=== PATIENT | female | born 1985 | race Caucasian/White ===

== ENCOUNTER → 2020-08-30 11:22 | Outpatient (BNVA) | payer MEDICAID, SELFPAY | PROVIDERS: PCP Family Medicine; Visit Provider Advanced Practice Midwife ==

== ENCOUNTER 2020-10-18 16:17 | Outpatient (REF) | payer MEDICAID, SELFPAY ==
[2020-10-18 17:01] LABS: MANUAL DIFF FLAG NO
[2020-10-18 17:12] LABS: Basophils Percent Auto 0.2 % (0-2); Eosinophils Percent Auto 0.6 % (0-4); Hematocrit 37.8 % (37-47); Hemoglobin 12.4 g/dl (12.0-16.0); Imm Gran Abs Auto 0.01 X10*3/uL (0.00-0.03); Imm Gran Pct Auto 0.2 % (0.0-0.4); Lymphocytes Absolute Auto 1.1 X10*3/uL (1.2-4.9); Lymphocytes Percent Auto 20.6 % (20-40); Mean Corpuscular HGB Conc 32.8 g/dl (31.0-35.0); Mean Corpuscular Hemoglobin 28.3 pg (27.0-33.0); Mean Corpuscular Volume 86.3 fL (80-98); Mean Platelet Volume 9.8 fL (9.4-12.3); Monocytes Absolute Auto 0.4 X10*3/uL (0.1-1.2); Monocytes Percent Auto 7.6 % (2-11); Neutrophils Absolute Auto 3.7 X10*3/uL (2.0-8.3); Neutrophils Percent Auto 70.8 % (45-73); Platelet Count 299 X10*3/uL (160-400); Red Blood Count 4.38 X10*6/uL (4.20-5.50); Red Cell Distribution Width 12.9 % (11.0-16.0); White Blood Count 5.2 X10*3/uL (4.8-10.8)
[2020-10-18 17:48] LABS: Alanine Aminotransferase 11 U/L (0-31); Albumin Level 4.6 g/dL (3.5-5.0); Alkaline Phosphatase 56 U/L (39-117); Anion Gap 11 (12-20); Aspartate Amino Transferase 16 U/L (5-31); Bilirubin Total 0.7 mg/dL (0.0-1.0); Blood Urea Nitrogen 11 mg/dL (9-16); C Reactive Protein 0.44 mg/dL (< or = 0.50); Calcium 9.3 mg/dL (8.4-10.2); Carbon Dioxide 27 mmol/L (22-29); Chloride 102 mmol/L (96-108); Estimated Glomerular Filt Rate > 60; Glucose Random 87 mg/dL (60-115); Potassium 3.8 mmol/L (3.3-5.1); Sodium 136 mmol/L (135-145); Total Protein 8.2 g/dL (6.5-8.0)
[2020-10-18 18:09] LABS: Glucose Urine UA NEG (NEG); Leukocyte Esterase Urine NEG (NEG); Nitrite Urine NEG (NEG); Specific Gravity - Urine >= 1.030 (1.005-1.025); Urine Blood 1+ (NEG); Urine Ketones NEG (NEG); Urine Protein NEG (NEG-TRACE)
[2020-10-18 18:13] LABS: Appearance Urine CLEAR; Color Urine YELLOW
[2020-10-18 18:18] LABS: RBC Urine 0-2 /HPF (0); Squamous Epithelial Cell Urine 1+ /LPF; WBC Urine 0-2 /HPF (0-4)
[2020-10-18 18:18] LABS: Erythrocyte Sedimentation Rate 22 MM/HR (0-20)
[2020-10-18 18:19] LABS: Mucus Urine 2+ /LPF
[2020-10-19 13:12] LABS: Anti DNA DS Antibody 7 IU/mL; Antibody to SS-A Antigen <1.0 NEG AI (<1.0 NEG); Antibody to SS-B Antigen <1.0 NEG AI (<1.0 NEG); SM/Ribonucleoprotein Ab <1.0 NEG AI (<1.0 NEG); Smith Protein <1.0 NEG AI (<1.0 NEG)
[2020-10-22 17:47] LABS: Complement C3 163 mg/dL (83-193)
[2020-10-23 13:56] LABS: ANA Pattern 2 Nuclear, Homogeneous; ANA Titer 2 1:40 titer; Anti Nuclear Antibody Screen POSITIVE (NEGATIVE); Anti Nuclear Antibody Titer 1:40 titer
== END 2020-10-18 16:18 | disposition home or self-care (01) ==
LOC: HO.LAB 16:17
PROVIDERS: PCP General Practice; Visit Provider Student in an Organized Health Care Education/Training Program
DX: R76.8 Other specified abnormal immunological findings in serum (principal); I82.3 Embolism and thrombosis of renal vein; Q26.8 Other congenital malformations of great veins; Z79.01 Long term (current) use of anticoagulants; Z79.1 Long term (current) use of non-steroidal anti-inflammatories (NSAID)
CPT/HCPCS: 36415; 80053; 81001; 85025; 85652; 86038; 86039; 86140; 86160; 86225; 86235; 99212

== ENCOUNTER 2020-10-22 13:19 | Outpatient (REF) | payer MEDICAID, SELFPAY ==
[2020-10-23 00:20] LABS: CT PCR NOT DETECTED (Not Detect.); NG PCR NOT DETECTED (Not Detect.)
[2020-10-23 09:08] LABS: BV Int Neg Control Negative (Negative); BV Int Pos Control Positive (Positive)
== END 2020-10-22 13:20 | disposition home or self-care (01) ==
LOC: HO.LAB 13:19
PROVIDERS: PCP General Practice; Visit Provider Advanced Practice Midwife
DX: Z01.419 Encounter for gynecological examination (general) (routine) without abnormal findings (principal); N89.8 Other specified noninflammatory disorders of vagina; Z20.2 Contact with and (suspected) exposure to infections with a predominantly sexual mode of transmission
CPT/HCPCS: 87480; 87491; 87510; 87591; 87660

== ENCOUNTER 2021-03-05 14:57 | Outpatient (REF) | payer MEDICAID, SELFPAY ==
[2021-03-05 15:47] LABS: MANUAL DIFF FLAG NO
[2021-03-05 15:50] LABS: Basophils Percent Auto 0.2 % (0-2); Eosinophils Percent Auto 0.9 % (0-4); Hemoglobin 12.9 g/dl (12.0-16.0); Imm Gran Abs Auto 0.02 X10*3/uL (0.00-0.03); Imm Gran Pct Auto 0.4 % (0.0-0.4); Lymphocytes Absolute Auto 1.2 X10*3/uL (1.2-4.9); Lymphocytes Percent Auto 26.4 % (20-40); Mean Corpuscular HGB Conc 33.1 g/dl (31.0-35.0); Mean Corpuscular Volume 84.8 fL (80-98); Mean Platelet Volume 10.3 fL (9.4-12.3); Monocytes Absolute Auto 0.3 X10*3/uL (0.1-1.2); Monocytes Percent Auto 6.2 % (2-11); Neutrophils Percent Auto 65.9 % (45-73); Platelet Count 320 X10*3/uL (160-400); Red Cell Distribution Width 12.6 % (11.0-16.0); White Blood Count 4.5 X10*3/uL (4.8-10.8)
[2021-03-05 16:25] LABS: Alanine Aminotransferase 9 U/L (0-31); Albumin Level 4.5 g/dL (3.5-5.0); Alkaline Phosphatase 60 U/L (39-117); Anion Gap 13 (12-20); Aspartate Amino Transferase 15 U/L (5-31); Bilirubin Total 0.6 mg/dL (0.0-1.0); Blood Urea Nitrogen 8 mg/dL (9-16); C Reactive Protein 0.25 mg/dL (< or = 0.50); Calcium 9.9 mg/dL (8.4-10.2); Carbon Dioxide 24 mmol/L (22-29); Chloride 105 mmol/L (96-108); Estimated Glomerular Filt Rate > 60; Glucose Random 102 mg/dL (60-115); Potassium 4.4 mmol/L (3.3-5.1); Sodium 138 mmol/L (135-145); Total Protein 8.1 g/dL (6.5-8.0)
[2021-03-05 16:33] LABS: Erythrocyte Sedimentation Rate 20 MM/HR (0-20)
[2021-03-05 17:02] LABS: Glucose Urine UA NEG (NEG); Leukocyte Esterase Urine NEG (NEG); Nitrite Urine NEG (NEG); Specific Gravity - Urine 1.025 (1.005-1.025); Urine Blood 1+ (NEG); Urine Ketones NEG (NEG); Urine Protein NEG (NEG-TRACE)
[2021-03-05 17:06] LABS: Appearance Urine CLEAR; Color Urine YELLOW
[2021-03-05 17:15] LABS: Bacteria Urine TRACE /LPF; RBC Urine 0-2 /HPF (0); WBC Urine 0 /HPF (0-4)
[2021-03-07 11:07] LABS: Anti DNA DS Antibody 6 IU/mL
[2021-03-07 11:37] LABS: Complement C3 136 mg/dL (83-193)
== END 2021-03-05 14:58 | disposition home or self-care (01) ==
LOC: HO.LAB 14:57
PROVIDERS: PCP General Practice; Visit Provider Student in an Organized Health Care Education/Training Program
DX: R76.8 Other specified abnormal immunological findings in serum (principal); I82.3 Embolism and thrombosis of renal vein
CPT/HCPCS: 36415; 80053; 81001; 85025; 85652; 86140; 86160; 86225; 99212

== ENCOUNTER 2021-10-28 13:04 | Outpatient (REF) | payer MEDICAID, SELFPAY ==
[2021-10-29 08:15] LABS: CT PCR NOT DETECTED (Not Detect.); NG PCR NOT DETECTED (Not Detect.)
[2021-10-29 08:43] LABS: BV Int Neg Control Negative (Negative); BV Int Pos Control Positive (Positive)
== END 2021-10-28 13:05 | disposition home or self-care (01) ==
LOC: HO.LAB 13:04
PROVIDERS: PCP General Practice; Visit Provider Advanced Practice Midwife
DX: Z01.411 Encounter for gynecological examination (general) (routine) with abnormal findings (principal); N89.8 Other specified noninflammatory disorders of vagina; Z20.2 Contact with and (suspected) exposure to infections with a predominantly sexual mode of transmission
CPT/HCPCS: 87480; 87491; 87510; 87591; 87660

== ENCOUNTER 2023-03-04 14:49 | Outpatient (AMB) | payer MEDICAID, SELFPAY ==
--- OUTSIDE RECORDS SUMMARY | 2023-03-04 14:50 | XMS_ITS | Continuity of Care Document ---
Author Name Unknown Organization [facility] Address [address] [place] [address]- Care Team Providers Care Credit Representative Name Role Phone Bridgette Grajeda MD Primary Care Physician Encounter [facility] Date(s): 09/28/19 - 10/08/19 [facility] [address] [place] [address]- [facility] Attending Physician: Delfin Watts Admitting Physician: Admtr, Delfin Referring Physician: Admtr, ArJose Allergies, Adverse Reactions, Alerts Substance Reaction Severity Status NKA Active Immunizations Given and Recorded Vaccine Date Status Refusal Reason influenza virus vaccine, inactivated 05/22/16 Give n tetanus/diphtheria/pertussis, acel(Tdap) 03/20/16 Given tetanus/diphtheria/pertussis, acel(Tdap) 03/06/16 Given Not Given Vaccine Date Status Refusal Reason influenza virus vaccine, inactivated 06/09/19 Not Given Patient Refuses influenza virus vaccine, inactivated 06/08/19 Not Given Patient Refuses pneumococcal 23-valent vaccine 06/09/19 Not Given Patient Refuses pneumococcal 23-valent vaccine 06/06/19 Not Given Patient Refuses Medications Plaquenil 200 mg oral tablet 200 mg, 1, tablet, By Mouth, Daily, Refills 0, Maintenance, 09/28/19 9:08:00 EST Start Date: 09/28/19 Status: Ordered Xarelto 20 mg oral tablet 1 tablet = 20 mg, By Mouth, Daily at supper, To begin taking after finishing the starter pack with evening meal, # 30 tablet, 3 Refills, Maintenance, 09/15/19 8:55:00 EST, Tablet, [facility] - , 162.8, cm, 07/25/19 15:04:00 EST,... 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
--- OUTSIDE RECORDS SUMMARY | 2023-03-04 14:50 | XMS_ITS | Continuity of Care Document ---
Author Name Unknown Organization [facility] Address [address] [facility] [place] [address]- Care Team Providers Care State'S Attorney Name Role Phone Nicci LEBRON, Bridgette Primary Care Physician [phone] Encounter 02/09/20 - 03/10/20 [facility] [address] [facility], [facility] [address] [place] [address]- [phone] Attending Physician: Charlotte LEBRON(Hem/Onc), Fred Laguerre Admitting Physician: Charlotte LEBRON(Hem/Onc), Fred Laguerre Referring Physician: Charlotte LEBRON(Hem/Onc), Fred Laguerre Allergies, Adverse Reactions, Alerts Substance Reaction Severity [...] vaccine 06/06/19 Not Given Patient Refuses Medications aspirin 325 mg oral tablet 325 mg, 1, tablet, By Mouth, Every 4 hours, Refills 0, Maintenance, 02/07/20 12:02:00 EDT Start Date: 02/07/20 Status: Ordered Biotin By Mouth, Daily, 0 Refills, Maintenance, 02/07/20 12:01:00 EDT Start Date: 02/07/20 Status: Ordered Problem List Condition Effective Dates Status Health Status 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
--- OUTSIDE RECORDS SUMMARY | 2023-03-04 14:50 | XMS_ITS | Continuity of Care Document ---
Author Name Unknown Organization [facility] Address [address] [place] [address]- Care Team Providers Care Vocational Training Instructor Name Role Phone Bridgette Grajeda MD Primary Care Physician [phone] Encounter [facility] Date(s): 02/15/20 - 02/15/[address] [address]- [facility] Discharge Disposition: A-D/C Home Attending Physician: Thiago Jiang MD Admitting Physician: Thiago Jiang MD Referring Physician: Thiago Jiang MD Allergies, Adverse Reactions, Alerts Substance Reaction Severity [...] with history of mu ltiple loss(Confirmed) Active Vital Signs Most recent to oldest [Reference Range]: 1 2 3 Height 160 cm (02/15/20 7:00 AM) 160 cm (02/15/20 7:00 AM) Weight 70.4 kg (02/15/20 7:00 AM) 70.4 kg (02/15/20 7:00 AM) Oxygen Saturation [94-100 %] 100 % (02/15/20 11:30 AM) 100 % (02/15/20 11:15 AM) 100 % (02/15/20 11:00 AM) Pulse Rate [55-90 bpm] 74 bpm (02/15/20 7:00 AM) Body Mass Index [18.5-24.99] 27.5 *H* (02/15/20 7:00 AM) Blood Pressure [90-138/55-84 mm Hg] 108/67mm Hg (02/15/20 11:30 AM) 105/62mm Hg (02/15/20 11:15 AM) 104/65mm Hg (02/15/20 11:00 AM) Respiratory Rate [16-30 br/min] 19 br/min (02/15/20 12:07 PM) 19 br/min (02/15/20 11:30 AM) 19 br/min (02/15/20 11:15 AM) Temperature [96.8-100.4 DegF] 98.2 DegF (02/15/20 9:50 AM) 97.1 DegF (02/15/20 7:00 AM) Mode of Delivery (Oxygen) Room air (02/15/20 11:30 AM) Room air (02/15/20 11:15 AM) Room air (02/15/20 11:00 AM) Blood pressure sites Arm, right (02/15/20 10:00 AM) Arm, right (02/15/20 7:00 AM) Temperature Route Temporal (02/15/20 9:50 AM) Temporal (02/15/20 7:00 AM) Dry Weight 70.4 kg (02/15/20 7:00 AM) 70.4 kg (02/15/20 7:00 AM) Weight Obtained Via Standing scale (02/15/20 7:00 AM) Standing scale (02/15/20 7:00 AM) Dry Weight Obtained Via Standing scale (02/15/20 7:00 AM) Standing scale (02/15/20 7:00 AM) Social History Social History Type Response Smoking Status Former smoker, quit more than 30 days ago entered on: 09/28/19 Sex
--- OUTSIDE RECORDS SUMMARY | 2023-03-04 14:50 | XMS_ITS | Continuity of Care Document ---
Author Name Unknown Organization [facility] Address [address] [place] [address]- Care Team Providers Care Substation Operator Apprentice Name Role Phone Bridgette Grajeda MD Primary Care Physician Encounter [facility] Date(s): 03/15/20 - 04/14/20 [facility] [address] [place] [address]- [facility] Allergies, Adverse Reactions, Alerts Substance Reaction Severity [...] 12:01:00 EDT Start Date: 02/07/20 Status: Ordered Eliquis 5 mg oral tablet 1 tablet = 5 mg, By Mouth, 2 times a day, # 60 tablet, 5 Refills, Maintenance, 03/15/20 13:57:00 EDT, Tablet, [facility], 160, cm, 02/15/20 7:29:00 EDT, Height, 70.4, kg, :29:00 EDT, Dry Weight Start Date: 03/15/20 Status: Ordered hydroxychloroquine 200 mg oral tablet 200 mg, 1, tablet, By Mouth, Daily, Refills 0, Maintenance, 03/29/20 13:22:00 EDT Start Date: 03/29/20 Status: Ordered traMADol 50 mg oral tablet 1 tablet = 50 mg, By Mouth, Every 4 hours, PRN as needed for pain, 0 Refills, Maintenance, 03/15/2014:00:00 EDT, Tablet Start Date: 03/15/20 Status: Ordered Problem List Condition Effective Dates Status Health Status Inform ant Positive CARLITO (antinuclear antibody)(Confirmed) Active Warfarin anticoagulation(Confirmed) Active 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
--- OUTSIDE RECORDS SUMMARY | 2023-03-04 14:51 | XMS_ITS | Continuity of Care Document ---
Author Name Unknown Organization [facility] Address [address] [place] [address]- Care Team Providers Care Mortgage Processing Manager Name Role Phone Bridgette Grajeda MD Primary Care Physician Encounter [facility] Date(s): 01/30/20 - 02/29/20 [facility] [address] [place] [address]- [facility] Allergies, Adverse Reactions, Alerts Substance Reaction Severity [...]
--- OUTSIDE RECORDS SUMMARY | 2023-03-04 14:51 | XMS_ITS | Continuity of Care Document ---
Author Name Unknown Organization [facility] Address [address] [place] [address]- Care Team Providers Care Consumer Insights Specialist Name Role Phone Bridgette Grajeda MD Primary Care Physician [phone] Encounter [facility] Date(s): 03/15/20 - 03/22/20 [facility] [address] [place] [address]- [facility] Attending Physician: Deidre LEBRON, Thiago Admitting Physician: Deidre LEBRON, Thiago Allergies, Adverse Reactions, Alerts Substance Reaction Severity [...] 5 Refills, Maintenance, 03/15/20 13:57:00 EDT, Tablet, [facility], 160, cm, 02/15/20 7:29:00 EDT, Height, 70.4, kg, :29:00 EDT, Dry Weight Start Date: 03/15/20 Status: Ordered traMADol 50 mg oral tablet 1 tablet = 50 mg, By Mouth, Every 4 hours, PRN as needed for pain, 0 Refills, Maintenance, 03/15/2014:00:00 EDT, Tablet Start Date: 03/15/20 Status: Ordered Problem List Condition Effective Dates Status Health Status 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
--- OUTSIDE RECORDS SUMMARY | 2023-03-04 14:51 | XMS_ITS | Continuity of Care Document ---
Author Name Unknown Organization [facility] Address [address] [place] [address]- Care Team Providers Care Chassis Driver Name Role Phone Bridgette Grajeda MD Primary Care Physician Encounter [facility] Date(s): 10/31/19 - 12/07/[address] [address]- [facility] Attending Physician: Not on Staff, Attending MD Referring Physician: Bridgette Grajeda MD Allergies, Adverse Reactions, Alerts Substance Reaction [...] 3 Refills, Maintenance, 09/15/19 8:55:00 EST, Tablet, [facility] - , 162.8, cm, 07/25/19 15:04:00 EST,... 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
--- OUTSIDE RECORDS SUMMARY | 2023-03-04 14:51 | XMS_ITS | Continuity of Care Document ---
Author Name Unknown Organization [facility] Address [address] [place] [address]- Care Team Providers Care Putty Worker Name Role Phone Bridgette Grajeda MD Primary Care Physician Encounter [facility] Date(s): 05/07/20 - 06/06/20 [facility] [address] [place] [address]- [facility] Attending Physician: Delfin Watts Admitting Physician: AdmtrDelfin Referring Physician: Admtr, Ar8 Allergies, Adverse Reactions, Alerts Substance Reaction Severity [...] 5 Refills, Maintenance, 03/15/20 13:57:00 EDT, Tablet, [facility], 160, cm, 02/15/20 7:29:00 EDT, Height, 70.4, kg, 207:29:00 EDT, Dry Weight Start Date: 03/15/20 Status: Ordered HYDROcodone 10 mg oral capsule, extended release 1 capsule = 10 mg, By Mouth, Every 12 hours, 0 Refills, Maintenance, 05/09/20 15:23:00 EDT, Partialfill upon patient request Start Date: 05/09/20 Status: Ordered hydroxychloroquine 200 mg oral tablet 200 mg, 1, tablet, By Mouth, Daily, Refills 0, Maintenance, 03/29/20 13:22:00 EDT Start Date: 03/29/20 Status: Ordered Problem List Condition Effective Dates [...]
--- OUTSIDE RECORDS SUMMARY | 2023-03-04 14:51 | XMS_ITS | Continuity of Care Document ---
Author Name Unknown Organization [facility] Address [address] [place] [address]- Care Team Providers Care Magneto Repairer Name Role Phone Bridgette Grajeda MD Primary Care Physician Encounter [facility] Date(s): 06/24/22 - 07/24/22 [facility] [address] [place], [place] [address] Attending Physician: Delfin Watts Admitting Physician: AdmDelfin felix Referring Physician: AdmtrDelfin Allergies, Adverse Reactions, Alerts No Known Allergies Immunizations Given and Recorded Vaccine Date Status [...] vaccine 06/06/19 Not Given Patient Refuses Medications Biotin By Mouth, Daily, 0 Refills, Maintenance, 02/07/20 12:01:00 EDT Start Date: 02/07/20 Status: Ordered Eliquis 5 mg oral tablet 1 tablet = 5 mg, By Mouth, 2 times a day, # 60 tablet, 5 Refills, Maintenance, 06/13/21 14:47:00 EST, Tablet, [id number], 160, cm, 06/13/21 10:35:00 EST, Height, 69.5, kg, 05/09/20 15:18:00 EDT, Dry Weight Start Date: 06/13/21 Status: Ordered HYDROcodone 10 mg oral capsule, extended release 1 capsule = 10 mg, By Mouth, Every 12 hours, 0 Refills, Maintenance, 05/09/20 15:23:00 EDT, Partialfill upon patient request Start Date: 05/09/20 Status: Ordered hydroxychloroquine 200 mg oral tablet 200 mg, 1, tablet, By Mouth, Daily, Refills 0, Maintenance, 03/29/20 13:22:00 EDT Start Date: 03/29/20 Status: Ordered Problem List Condition Confirmation Course Effective Dates Status H ealth Status Informant Positive CARLITO (antinuclear antibody) Confirmed Active Warfarin anticoagulation Confirmed Active 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 Lupus Confirmed Active Thrombosis of ovarian vein, chronic Confirmed Active Renal vein thrombosis Confirmed Active Tobacco abuse Confirmed Active Social History Social History Type Response Smoking Status Former smoker, quit more than 30 days ago entered on: 09/28/19 Sex Patient Care team information Care Team Personnel Name: Adelaida Miles Position: [facility] Onco RN Member Role: Primary Care Nurse Name: Bridgette Grajeda MD Position: [facility] Outreach Member Role: PCP Address: Address: [address] [place] [address]- Name: Danay Lerner RN Position: [facility] RN Member Role: Primary Care Nurse Name: Delbert Mccarthy DO Position: [facility] Renal MD Member Role: Lifetime Consulting Physician Address: Address: [address] [place], [place] [address] [place] [address]- Name: Matt Lynch DO Position: [facility] JEWELRY DIPPER MD Member Role: Lifetime JEWELRY DIPPER Physician Address: Address: [address] [facility] [place] [address]- Name: Matty Hardin RN Position: [facility] RN Member Role: Primary Care Nurse Name: Meche Hollins RN Position: [facility] RN Member Role: Primary Care Nurse Name: Radha Mcdaniels RN Position: [facility] RN Member Role: Primary Care Nurse Name: Yissel Mullins RN Position: [facility] SN RN Member Role: Primary Care Nurse Name: Freddie Posey RN Position: [facility] SN RN Member Role: Primary Care Nurse Care Team Related Persons Name: DIAZ PATINO Address: [place] [address] Name: ERIKA YUAN Address: home [address] [place] [address]
--- OUTSIDE RECORDS SUMMARY | 2023-03-04 14:51 | XMS_ITS | Continuity of Care Document ---
Author Name Unknown Organization [facility] Address [address] [place] [address]- Care Team Providers Care Plant Protection Supervisor Name Role Phone Bridgette Grajeda MD Primary Care Physician [phone] Encounter [facility] Date(s): 05/10/20 - 06/09/20 [facility] [address] [place], [place] [address] Attending Physician: AdmDelfin felix Admitting Physician: Admtr, Ar8 Referring Physician: Admtr, Ar8 Allergies, Adverse Reactions, [...] 5 Refills, Maintenance, 03/15/20 13:57:00 EDT, Tablet, [facility], 160, cm, 02/15/20 7:29:00 EDT, [...]
--- OUTSIDE RECORDS SUMMARY | 2023-03-04 14:51 | XMS_ITS | Continuity of Care Document ---
Author Name Unknown Organization [facility] Address [address] [facility] [place] [address]- Care Team Providers Care Masonry Installer Name Role Phone Nicci LEBRON, Bridgette Primary Care Physician [phone] Encounter 02/09/20 - 03/10/20 [facility] [address] [facility], [facility] [address] [place] [address]- [phone] Attending Physician: Charlotte LEBRON(Hem/Onc), Fred Laguerre Admitting [...]
--- OUTSIDE RECORDS SUMMARY | 2023-03-04 14:51 | XMS_ITS | Continuity of Care Document ---
Author Name Unknown Organization [facility] Address [address] [place] [address]- Care Team Providers Care Rn Rehab Name Role Phone Bridgette Grajeda MD Primary Care Physician [phone] Encounter [facility] Date(s): 05/04/20 - 06/03/20 [facility] [address] [place] [address]- [facility] Attending Physician: AdmDelfin felix Admitting Physician: Admtr, Malvin8 Referring Physician: Admtr, Ar8 Allergies, Adverse Reactions, [...] 5 Refills, Maintenance, 03/15/20 13:57:00 EDT, Tablet, [facility], 160, cm, 02/15/20 7:29:00 EDT, Height, [...]
--- OUTSIDE RECORDS SUMMARY | 2023-03-04 14:51 | XMS_ITS | Continuity of Care Document ---
Author Name Unknown Organization [facility] Address [address] [place] [address]- Care Team Providers Care Corporate Real Estate Manager Name Role Phone Bridgette Grajeda MD Primary Care Physician En[place] [facility] Date(s): 03/15/20 - 04/14/20 [facility] [address] [place] [address]- [facility] Attending Physician: AdmDelfin felix Admitting Physician: Admtr, Delfin Referring Physician: Admtr, Ar8 Allergies, Adverse Reactions, [...] 5 Refills, Maintenance, 03/15/20 13:57:00 EDT, Tablet, [facility], 160, cm, 02/15/20 7:29:00 EDT, [...]
--- OUTSIDE RECORDS SUMMARY | 2023-03-04 14:51 | XMS_ITS | Continuity of Care Document ---
Author Name Unknown Organization [facility] Address [address] [place] [address]- Care Team Providers Care Table Games Manager Name Role Phone Bridgette Grajeda MD Primary Care Physician [phone] Encounter [facility] Date(s): 12/17/20 - 01/16/21 [facility] [address] [place] [address]- Allergies, Adverse Reactions, Alerts Substance Reaction Severity [...] day, # 60 tablet, 5 Refills, Maintenance, 12/18/20 9:33:00 EDT, Tablet, [id number], 160, cm, 07/17/20 15:42:00 EST, Height, 69.5, kg, 05/09/20 15:18:00 EDT, Dry Weight Start Date: 12/18/20 Status: Ordered HYDROcodone 10 mg oral capsule, extended release 1 capsule = 10 mg, By Mouth, Every 12 hours, 0 Refills, Maintenance, 05/09/20 15:23:00 EDT, Partialfill upon patient request Start Date: 05/09/20 Status: Ordered hydroxychloroquine 200 mg oral tablet 200 mg, 1, tablet, By Mouth, Daily, Refills 0, Maintenance, 03/29/20 13:22:00 EDT Start Date: 03/29/20 Status: Ordered Multivitamins with Vitamin B Complex, Vitamin C, Minerals and L- Methylfolate oral capsule 1 capsule, By Mouth, Daily, # 30 capsule, 11 Refills, Maintenance, 07/17/20 16:30:00 EST, Capsule, [id number], Partial fill upon patient request if the prescription is for a schedule II opioid drug., 1 capsule By Mouth Daily, 160, cm, 07/17/20... Start Date: 07/17/20 Status: Ordered Problem List Condition Effective Dates [...]
--- OUTSIDE RECORDS SUMMARY | 2023-03-04 14:51 | XMS_ITS | Continuity of Care Document ---
Author Name Unknown Organization [facility] Address [address] [place] [address]- Care Team Providers Care It Network Architect Name Role Phone Bridgette Grajeda MD Primary Care Physician [phone] Encounter [facility] Date(s): 06/13/21 - 07/13/21 [facility] [address] [place] [address]- Attending Physician: AdmDelfin felix Admitting Physician: Admtr, [...]
--- OUTSIDE RECORDS SUMMARY | 2023-03-04 14:51 | XMS_ITS | Continuity of Care Document ---
Author Name Unknown Organization [facility] Address [address] [place] [address]- Care Team Providers Care Project Program Manager Name Role Phone Bridgette Grajeda MD Primary Care Physician [place] [facility] Date[place]s): 01/03/20 - 04/17/20 [facility] [address] [place] [address]- [facility] Discharge Disposition: A-D/C Home Attending Physician: Charlotte LEBRON(Hem/Onc), Fred Laguerre Admitting Physician: Bolivar Ruvalcaba MD Referring Physician: Bridgette Grajeda MD Allergies, [...] 5 Refills, Maintenance, 03/15/20 13:57:00 EDT, Tablet, [facility], 160, cm, 02/15/20 7:29:00 EDT, Height, [...] Renal vein thrombosis(Confirmed) Active Tobacco abuse(Confirmed) Active Vital Signs Most recent to oldest [Reference Range]: 1 Height 162.8 cm (02/08/20 3:02 PM) Weight 70.8 kg (02/08/20 3:02 PM) Oxygen Saturation [94-100 %] 97 % (02/08/20 3:02 PM) Pulse Rate [55-90 bpm] 65 bpm (02/08/20 3:02 PM) Body Mass Index [18.5-24.99] 26.71 *H* (02/08/20 3:02 PM) Blood Pressure [90-138/55-84 mm Hg] 107/ 65mm Hg (02/08/20 3:02 PM) Temperature [96.8-100.4 DegF] 98.1 DegF (02/08/20 3:02 PM) Mode of Delivery (Oxygen) Room air (02/08/20 3:02 PM) Blood pressure sites Arm, left (02/08/20 3:02 PM) Temperature Route Temporal (02/08/20 3:02 PM) Dry Weight 70.8 kg (02/08/20 3:02 PM) Weight Obtained Via Standing scale (02/08/20 3:02 PM) Dry Weight Obtained Via Standing scale (02/08/20 3:02 PM) Social History Social History Type Response Smoking Status Former smoker, quit more than 30 days ago entered on: 09/28/19 Sex
--- OUTSIDE RECORDS SUMMARY | 2023-03-04 14:51 | XMS_ITS | Continuity of Care Document ---
Author Name Unknown Organization [facility] Address [address] [place] [address]- Care Team Providers Care Senior Sas Developer Name Role Phone Nicci LEBRON, Bridgette Primary Care Physician Encounter [facility] Date(s): 08/15/20 - 09/14/[address] [address]- Attending Physician: Delfin Watts Admitting Physician: AdmDelfin felix Referring Physician: AdmtrDelfin Allergies, Adverse Reactions, Alerts Substance Reaction Severity [...] 5 Refills, Maintenance, 03/15/20 13:57:00 EDT, Tablet, [facility], 160, cm, 02/15/20 7:29:00 EDT, [...]
--- OUTSIDE RECORDS SUMMARY | 2023-03-04 14:51 | XMS_ITS | Continuity of Care Document ---
Author Name Unknown Organization [facility] Address [address] [place] [address]- Care Team Providers Care Cloth Desizing Range Tender Name Role Phone Nicci LEBRON, Bridgette Primary Care Physician Encounter [facility] Date(s): 07/28/19 - 09/03/[address] [address]- [facility] Attending Physician: Not on Staff, Attending MD Allergies, Adverse Reactions, Alerts Substance Reaction [...] vaccine 06/06/19 Not Given Patient Refuses Medications rivaroxaban 15 mg-20 mg oral kit See Instructions, Starter pack with 15mg tablet BID with food x 21 days then 20mg tablet daily withfood, # 1 pack/packet, 0 Refills, Maintenance, 07/06/19 17:29:52 EST, 162.8, cm, 07/06/19 13:31:30 EST, Height, 68.7, kg, 07/06/19 13:31:30 EST, Dry We... Start Date: 07/06/19 Status: Ordered Xarelto 20 mg oral tablet 1 tablet = 20 mg, By Mouth, Daily at supper, To begin taking after finishing the starter pack with evening meal, # 30 tablet, 3 Refills, Maintenance, 07/13/19 9:54:28 EST, Tablet, 162.8, cm, 07/06/1913:31:30 EST, Height, 68.7, kg, 07/06/19 13:31:30... 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
--- OUTSIDE RECORDS SUMMARY | 2023-03-04 14:51 | XMS_ITS | Continuity of Care Document ---
Author Name Unknown Organization [facility] Address [address] [place] [address]- Care Team Providers Care Weigher Packing Name Role Phone [place]te Grajeda MD Primary Care Physician Encounter [facility] Date(s): 09/28/19 - 10/05/19 [facility] [address] [place] [address]- [facility] Attending Physician: Thiago Jiang MD Admitting Physician: Thiago Jiang MD Referring Physician: [place] Grajeda MD Allergies, [...] 3 Refills, Maintenance, 09/15/19 8:55:00 EST, Tablet, [facility] - , 162.8, cm, 07/25/19 15:04:00 EST,... 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
--- OUTSIDE RECORDS SUMMARY | 2023-03-04 14:51 | XMS_ITS | Continuity of Care Document ---
Author Name Unknown Organization [facility] Address [address] [facility], [address] [place] [address]- Care Team Providers Care Staffing Clerk Name Role Phone Br[place]te Grajeda MD Primary Care Physician [phone] Encounter 02/09/20 - 02/16/20 [facility] [address], [facility] [address] [place] [address]- [phone] Attending Physician: Charlotte LEBRON(Hem/Onc), Fred Laguerre Admitting [...]
--- OUTSIDE RECORDS SUMMARY | 2023-03-04 14:51 | XMS_ITS | Continuity of Care Document ---
Author Name Unknown Organization [facility] Address [address] [place] [address]- Care Team Providers Care Manager Cash Name Role Phone Nicci LEBRON, Bridgette Primary Care Physician Encounter [facility] Date(s): 06/16/19 - 09/05/19 [facility] [address] [place] [address]- [facility] Discharge Disposition: A-D/C Home Attending Physician: Charlotte [...] oldest [Reference Range]: 1 Height 162.8 cm (07/06/19 1:31 PM) Weight 68.7 kg (07/06/19 1:31 PM) Pulse Rate [55-90 bpm] 74 bpm (07/06/19 1:31 PM) Body Mass Index [18.5-24.99] 25.92 *H* (07/06/19 1:31 PM) Blood Pressure [90-138/55-84 mm Hg] 118/ 86mm Hg (07/06/19 1:31 PM) Temperature [96.8-100.4 DegF] 98.6 DegF (07/06/19 1:31 PM) Blood pressure sites Arm, left (07/06/19 1:31 PM) Temperature Route Temporal (07/06/19 1:31 PM) Dry Weight 68.7 kg (07/06/19 1:31 PM) Weight Obtained Via Standing scale (07/06/19 1:31 PM) Dry Weight Obtained Via Standing scale (07/06/19 1:31 PM) Social History Social History Type Response Smoking Status Current every day gaby owens entered on: 05/08/17 Sex
--- OUTSIDE RECORDS SUMMARY | 2023-03-04 14:51 | XMS_ITS | Continuity of Care Document ---
Author Name Unknown Organization [facility] Address [address] [place] [address]- Care Team Providers Care Wind Commissioning Technician Name Role Phone [place]te Grajeda MD Primary Care Physician Encounter [facility] Date(s): 09/05/20 - 10/05/20 [facility] [address] [place] [address] Attending Physician: Delfin Watts Admitting Physician: Admtr, [...] 5 Refills, Maintenance, 03/15/20 13:57:00 EDT, Tablet, [facility], 160, cm, 02/15/20 7:29:00 EDT, [...]
--- OUTSIDE RECORDS SUMMARY | 2023-03-04 14:51 | XMS_ITS | Continuity of Care Document ---
Author Name Unknown Organization [facility] Address [address] [place] [address]- Care Team Providers Care Cnc Set Up Operator Name Role Phone [place]te Grajeda MD Primary Care Physician [place] [facility] Date(s[place] 02/14/20 - 02/14/[address] [address]- [facility] Encounter Diagnosis Back pain(Final) - 02/14/20 Renal vein thrombosis(Final) - 02/14/20 Discharge Disposition: A-D/C Home Attending Physician: Edmond Johnson MD Admitting Physician: Edmond Johnson MD Referring Physician: Not on Staff, Referring MD Allergies, Adverse Reactions, Alerts Substance Reaction [...] 12:01:00 EDT Start Date: 02/07/20 Status: Ordered Plaquenil 200 mg oral tablet 200 mg, 1, tablet, By Mouth, Daily, Refills 0, Maintenance, 09/28/19 9:08:00 EST Start Date: 09/28/19 Status: Ordered Problem List Condition Effective Dates Status Health Status 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 Vital Signs Most recent to oldest [Reference Range]: 1 2 3 Weight 70.9 kg (02/14/20 9:25 AM) 70.9 kg (02/14/20 1:03 AM) Oxygen Saturation [94-100 %] 100 % (02/14/20 5:16 AM) 100 % (02/14/20 2:52 AM) 100 % (02/14/20 1:03 AM) Pulse Rate [55-90 bpm] 68 bpm (02/14/20 5:16 AM) 69 bpm (02/14/20 2:52 AM) 74 bpm (02/14/20 1:03 AM) Blood Pressure [90-138/55-84 mm Hg] 112/67mm Hg (02/14/20 5:16 AM) 108/69mm Hg (02/14/20 2:52 AM) 103/77mm Hg (02/14/20 1:03 AM) Respiratory Rate [16-30 br/min] 20 br/min (02/14/20 5:16 AM) 20 br/min (02/14/20 2:52 AM) 20 br/min (02/14/20 1:03 AM) Temperature [96.8-100.4 DegF] 97.8 DegF (02/14/20 5:16 AM) 97.9 DegF (02/14/20 2:52 AM) 97.6 DegF (02/14/20 1:03 AM) Mode of Delivery (Oxygen) Room air (02/14/20 5:16 AM) Room air (02/14/20 2:52 AM) Room air (02/14/20 1:03 AM) Blood pressure sites Arm, right (02/14/20 5:16 AM) Arm, left (02/14/20 2:52 AM) Arm, right (02/14/20 1:03 AM) Temperature Route Oral (02/14/20 5:16 AM) Oral (02/14/20 2:52 AM) Oral (02/14/20 1:03 AM) Dry Weight 70.9 kg (02/14/20 9:25 AM) 70.9 kg (02/14/20 1:03 AM) Social History Social History Type Response Smoking Status Former smoker, quit more than 30 days ago entered on: 09/28/19 Sex
--- OUTSIDE RECORDS SUMMARY | 2023-03-04 14:51 | XMS_ITS | Continuity of Care Document ---
Author Name Unknown Organization [facility] Address [address] [place] [address]- Care Team Providers Care Wheat Combine Driver Name Role Phone Nicci LEBRON, Bridgette Primary Care Physician Encounter [facility] Date(s): 11/07/19 - 11/17/[address] [address]- [facility] Attending Physician: Delfin Watts Admitting Physician: Delfin Watts Referring Physician: AdmtrDelfin Allergies, Adverse Reactions, Alerts [...] 3 Refills, Maintenance, 09/15/19 8:55:00 EST, Tablet, [facility], 162.8, cm, 07/25/19 15:04:00 EST,... 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
--- OUTSIDE RECORDS SUMMARY | 2023-03-04 14:51 | XMS_ITS | Continuity of Care Document ---
Author Name Unknown Organization [facility] Address [address] [place] [address]- Care Team Providers Care Sock Folder Name Role Phone Nicci LEBRON, Bridgette Primary Care Physician Encounter [facility] Date(s): 06/18/20 - 07/18/[address] [address] Allergies, Adverse Reactions, Alerts Substance Reaction Severity [...] 5 Refills, Maintenance, 03/15/20 13:57:00 EDT, Tablet, [facility], 160, cm, 02/15/20 7:29:00 EDT, Height, 70.4, kg, :29:00 EDT, Dry Weight Start Date: 03/15/20 Status: Ordered HYDROcodone 10 mg oral capsule, extended release 1 capsule = 10 mg, By Mouth, Every 12 hours, 0 Refills, Maintenance, 10/07/20 15:23:00 EDT, Partialfill upon patient request Start [...]
--- OUTSIDE RECORDS SUMMARY | 2023-03-04 14:51 | XMS_ITS | Continuity of Care Document ---
Author Name Unknown Organization [facility] Address [address] [place] [address]- Care Team Providers Care Barrel Assembly Inspector Name Role Phone Nicci LEBRON, Bridgette Primary Care Physician [place] [facility] [place](s[place] 07/17/20 - 09/14/[address] [address]- Attending Physician: Not on Staff, Attending MD [...] 5 Refills, Maintenance, 03/15/20 13:57:00 EDT, Tablet, [facility], 160, cm, 02/15/20 7:29:00 EDT, [...]
--- OUTSIDE RECORDS SUMMARY | 2023-03-04 14:51 | XMS_ITS | Continuity of Care Document ---
Author Name Unknown Organization [facility] Address [address] [place] [address]- Care Team Providers Care Garnett Machine Operator Helper Name Role Phone Bridgette Grajeda MD Primary Care Physician Encounter [facility] Date(s): 05/10/20 - 05/17/20 [facility] [address] [place] [address]- [facility] Attending Physician: Deidre LEBRON, Thiago Admitting Physician: [...]
--- OUTSIDE RECORDS SUMMARY | 2023-03-04 14:51 | XMS_ITS | Continuity of Care Document ---
Author Name Unknown Organization [facility] Address [address] [place] [address]- Care Team Providers Care Manager Ed Name Role Phone Bridgette Grajeda MD Primary Care Physician [phone] Encounter [facility] Date(s): 03/26/22 - 07/24/22 [facility] [address] [place] [address] Attending Physician: Agustin Mora MD Admitting Physician: Agustin Mora MD Allergies, Adverse Reactions, Alerts No Known Allergies [...] Care Team Personnel Name: Adelaida Miles Position: [facility] Onco RN Member Role: Primary Care Nurse Name: Bridgette Grajeda MD Position: [facility] Outreach Member Role: PCP Address: Address: [address] [place] [address]- Name: Danay Lerner RN Position: [facility] RN Member Role: Primary Care Nurse Name: Delbert Mccarthy DO Position: [facility] Renal MD Member Role: Lifetime Consulting Physician Address: Address: [address] [place], [place] [address] [place] [address]- Name: Matt Lynch DO Position: [facility] SPORTS ANCHOR MD Member Role: Lifetime SPORTS ANCHOR Physician Address: Address: [address] [place], [place] [address]s [facility] [place] [address]- Name: Matty Hardin RN Position: [facility] RN Member Role: Primary Care Nurse Name: Meche Hollins RN Position: [facility] RN Member Role: Primary Care Nurse Name: Radha Mcdaniels RN Position: [facility] RN Member Role: Primary Care Nurse Name: Yissel Mullins RN Position: [facility] SN RN Member Role: Primary Care Nurse Name: Freddie Posey RN Position: [facility] SN RN Member Role: Primary Care Nurse Care Team Related Persons Name: DIAZ PATINO Address: [place] [address] Name: ERIKA YUAN Address: home [address] [place] [address]
--- OUTSIDE RECORDS SUMMARY | 2023-03-04 14:51 | XMS_ITS | Continuity of Care Document ---
Author Name Unknown Organization [facility] Address [address] [place] [address]- Care Team Providers Care Beef Grinder Name Role Phone Bridgette Grajeda MD Primary Care Physician [place] [facility] Date(s): 05/04/20 - 07/09/20 [facility] [address] [place] [address]- Discharge Disposition: A-D/C Home Attending Physician: Charlotte [...] 5 Refills, Maintenance, 03/15/20 13:57:00 EDT, Tablet, [facility], 160, cm, 02/15/20 7:29:00 EDT, [...] oldest [Reference Range]: 1 Height 160 cm (05/09/20 3:18 PM) Weight 69.5 kg (05/09/20 3:18 PM) Oxygen Saturation [94-100 %] 99 % (05/09/20 3:18 PM) Pulse Rate [55-90 bpm] 63 bpm (05/09/20 3:18 PM) Body Mass Index [18.5-24.99] 27.15 *H* (05/09/20 3:18 PM) Blood Pressure [90-138/55-84 mm Hg] 113/ 68mm Hg (05/09/20 3:18 PM) Temperature [96.8-100.4 DegF] 97.1 DegF (05/09/20 3:18 PM) Mode of Delivery (Oxygen) Room air (05/09/20 3:18 PM) Blood pressure sites Arm, left (05/09/20 3:18 PM) Temperature Route Oral (05/09/20 3:18 PM) Dry Weight 69.5 kg (05/09/20 3:18 PM) Weight Obtained Via Standing scale (05/09/20 3:18 PM) Dry Weight Obtained Via Standing scale (05/09/20 3:18 PM) Social History Social History Type Response Smoking Status Former smoker, quit more than 30 days ago entered on: 09/28/19 Sex
--- OUTSIDE RECORDS SUMMARY | 2023-03-04 14:51 | XMS_ITS | Continuity of Care Document ---
Author Name Unknown Organization [facility] Address [address] [place] [address]- Care Team Providers Care Media Developer Name Role Phone Bridgette Grajeda MD Primary Care Physician Encounter [facility] Date(s): 02/27/20 - 03/28/20 [facility] [address] [place] [address]- [facility] Allergies, Adverse Reactions, Alerts Substance Reaction Severity [...] 5 Refills, Maintenance, 03/15/20 13:57:00 EDT, Tablet, [facility], 160, cm, 02/15/20 7:29:00 EDT, [...]
--- OUTSIDE RECORDS SUMMARY | 2023-03-04 14:51 | XMS_ITS | Continuity of Care Document ---
Author Name Unknown Organization [facility] Address [address] [place] [address]- Care Team Providers Care Adult Education Professional Name Role Phone Bridgette Grajeda MD Primary Care Physician [phone] Encounter [facility] Date(s): 01/03/20 - 02/02/20 [facility] [address] [place] [address]- [facility] Attending Physician: Delfin Watts Admitting Physician: AdmDelfin [...] 3 Refills, Maintenance, 09/15/19 8:55:00 EST, Tablet, [facility] - , 162.8, cm, 07/25/19 15:04:00 EST,... 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
--- NOTE | 2023-03-04 14:56 | A.OFFVIS_ITS ---
Intake Vital Signs 03/04/23 14:57 Height 5 ft 3 in Weight 164 lb BMI 29.0 BP 114/70 Intake Visit Reasons: VARNISH THINNER annual exam Intake Note: The patient agreed to use of a emergency medical service manager during this encounter. Scribed for YULY Meier by Ann Marie Minor emergency medical service manager, on 03/04/2023 at 3:20 pm EST. Shear Helper: Shear Helper Present (Juju) Accompanied by: Son Allergies No Known Allergies [No Known Allergies*] Allergy (Verified 03/04/23 14:57) Is last menstrual period known: Yes Last menstrual period: 02/21/23 HPI HPI Comments History of Present Illness Details She is a premenopausal woman presenting for annual exam with concerns of weight gain. Doing well with no manufacturing process engineer concerns. She admits to eating healthy and tries to stay active with exercise. Currently sexually active and does not use BC. Not interested in becoming . Reports using IUD in the past resulting in infections. Regular monthly periods. Denies vaginal itching and irritation. Admits vaginal discharge. STD screening offered; she accepts. Denies family hx of breast, colon and ovarian cancer. Last pap smear 06/21/19. 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 Renal vein thrombosis Surgical History History of History of cholecystectomy Family History Mother Diabetes Social History Alcohol intake: never Patient Tobacco Use Status: Current someday Tobacco user Cigarettes Per Day: 4 Sexual orientation: Straight/Heterosexual Gender identity: Female Female Reproductive History Menstrual Duration of menses: 6-7 days Date of last menstrual period: 02/21/23 control method: none Total pregnancies: 5 Full term: 2 Number of Living Children: 2 Ab spontaneous: 3 Date of last pap smear: 06/21/19 (neg pap and hpv) Physical Exam Vital Signs: Last Vital Signs BP 114/70 03/04/23 14:57 BMI result Body Mass Index 29.0 Const General: cooperative, healthy appearing, no acute distress, well developed and alert Orientation/consciousness: patient oriented x3 HEENT Head: Yes normal to inspection Eyes General: appearance normal, both eyes and all related structures Neck Neck: Yes normal visual inspection Thyroid: Thyroid normal Chest Chest palpation & inspection: normal inspection of the chest Breast/axilla inspection: normal inspection of the breasts (no puckering, dimpling, peau de orange, retraction, discharge, masses) Breast/axilla palpation: normal palpation of the breasts Resp Effort & Inspection: normal respiratory effort GI Other: low transverse scar Inspection: Yes normal to inspection Palpation (GI): Soft to palpation (to palpation) Rectal Exam - Female: deferred General: Yes bladder normal to inspection External Female Exam: normal external appearance and normal appearance of the urethra Speculum Exam - Vagina: normal appearance of the vagina, normal palpation and normal vaginal discharge Speculum Exam - Cervix: normal appearance of the cervix and normal palpation Bimanual exam- vagina & uterus: normal palpation and normal palpation Bimanual Exam- Adnexa, other: normal adnexae and no masses Skin General skin exam: no rashes or lesions noted Neuro General: patient oriented x3 Cognition (Neuro): normal cognition Extrem General: Yes normal to inspection Psych Attitude: cooperative Thought process: Normal thought process present Assessment & Plan Assessment & Plan (1) Encounter for well woman exam: Code(s): Z01.419 - Encounter for gynecological examination (general) (routine) without abnormal findings Plan: Discussed: Current recommendations for pap smears per ASCCP guidelines Breast awareness and periodic self breast exams. Maintaining a healthy lifestyle including a well balanced diet and routine exercise. Recommend start taking PNV. Monitor menses with Mk christina, she opts to use condoms or spermicide for prevention. BV testing and GC/CT panel done today. Await results and treat accordingly. All of her questions and concerns were addressed to the best of my ability. RTO in one year for AG. Orders: Orders Bacterial Vaginosis Panel Today N89.8 - Other specified noninflammatory disorders of vagina CT NG by PCR Today N89.8 - Other specified noninflammatory disorders of vagina Coding Level of Care Code Est Pt Prev Care 18-39y(08265) Diagnoses Encounter for well woman exam Z01.419
[2023-03-04 14:57] VITALS: BP 114/70; BMI 29.0
== END 2023-03-04 15:35 | disposition home or self-care (01) ==
PROVIDERS: PCP General Practice; Visit Provider Advanced Practice Midwife
DX: Z01.419 Encounter for gynecological examination (general) (routine) without abnormal findings (principal)
CPT/HCPCS: 99395

== ENCOUNTER 2023-03-04 14:49 | Outpatient (REF) | payer MEDICAID, SELFPAY ==
[2023-03-05 11:58] LABS: BV Int Neg Control Negative (Negative); BV Int Pos Control Positive (Positive)
[2023-03-05 15:36] LABS: CT PCR NOT DETECTED (Not Detect.); NG PCR NOT DETECTED (Not Detect.)
== END 2023-03-04 14:50 | disposition home or self-care (01) ==
LOC: HO.LAB 14:49
PROVIDERS: PCP General Practice; Visit Provider Advanced Practice Midwife
DX: Z01.419 Encounter for gynecological examination (general) (routine) without abnormal findings (principal); N89.8 Other specified noninflammatory disorders of vagina
CPT/HCPCS: 0353U; 87480; 87510; 87660; 99395

== ENCOUNTER 2023-03-04 15:51 | Outpatient (REF) | payer MEDICAID, SELFPAY | END 2023-03-04 15:52 | disposition home or self-care (01) | LOC: HO.LNP 15:51 | PROVIDERS: Visit Provider Advanced Practice Midwife | DX: Z13.89 Encounter for screening for other disorder (principal) ==

== ENCOUNTER 2023-04-28 13:57 | Emergency (ER) | payer MEDICAID, SELFPAY ==
--- NOTE | ~2023-04-28 | CT_ITS ---
EXAMINATION: CT ABDOMEN AND PELVIS WITH CONTRAST CLINICAL INFORMATION: Left-sided flank pain with history of right-sided renal vein thrombosis COMPARISON: Renal ultrasound 06/04/2019, CT abdomen pelvis 06/04/2019 TECHNIQUE: Multidetector volumetric images were obtained from the superior aspect of the liver through the pubic symphysis following administration 85 mL of Omnipaque 350 intravenous contrast. Sagittal and coronal reformatted images were obtained on the technologist's workstation. Oral contrast: No This CT examination was performed using dose optimization techniques as appropriate, variously including the following: *Automated exposure control *Adjustment of mA and/or kV according to patient size (this includes techniques or standardized protocols for targeted exams where dose is matched to indication/reason for exam; i.e. extremities or head) *Use of iterative reconstruction technique DLP: 750 mGy-cm FINDINGS: LUNG BASES: The visualized lung bases are unremarkable. LIVER, GALLBLADDER, AND BILIARY TREE: The liver is normal in size, shape, and attenuation. No focal hepatic lesion or biliary ductal dilatation is present. Status post cholecystectomy. PANCREAS: Unremarkable. SPLEEN: Unremarkable. ADRENAL GLANDS: Unremarkable. KIDNEYS AND URETERS: The kidneys are normal in size, shape, and attenuation. Fluid density seen in both renal pelves either represent parapelvic cysts or mild pelvocaliectasis. I suspect that this may be parapelvic cysts rather than hydronephrosis. An attempt will be made to obtain a CT scan in a delayed fashion through the kidneys. No hydroureter, or calculi seen. No perinephric stranding. BLADDER: Empty and cannot be evaluated. No calculi GASTROINTESTINAL TRACT: The small and large bowel are unremarkable. The appendix is unremarkable. ABDOMINAL WALL: No significant hernia is appreciated. Tiny periumbilical hernia present in some mild diastases of the rectus muscles. LYMPH NODES: No retroperitoneal lymphadenopathy. 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 Appearances are similar to prior. At the time of the prior study, thrombus was present in the left renal vein which now appears stenotic and drainage is into a lumbar vein. No acute venous thrombus is seen. The portal venous system is patent. The aorta and visualized iliofemoral arteries are unremarkable PELVIC VISCERA: There is a mildly enlarged uterus with areas of enhancement which represent intramural veins. No definite fibroids are seen. No free pelvic fluid. OSSEOUS STRUCTURES: Unremarkable. CT/CT abdomen pelvis w IV con IMPRESSION: 1. A definite cause for the patient's left-sided flank pain has not been found. 2. 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 3. There is no evidence of acute venous thrombus. 4. Bilateral parapelvic cysts versus mild pelvocaliectasis. 5. Mildly enlarged uterus. Fleischner guidelines were followed.
--- NOTE | 2023-04-28 14:08 | ED_ITS ---
HPI - General Adult General Chief complaint: Abdominal Pain Stated complaint: L flank pain Time Seen by Provider: 04/28/23 17:53 Source: patient Mode of arrival: ambulatory Limitations: no limitations History of Present Illness HPI narrative: patient comes emergency room complaining of 1 day of left-sided flank pain. Patient states that several years ago, patient was diagnosed with blood clots in the right renal vein. Patient is supposed to be on blood thinners but she does not take it. Patient states the pain in her left flank is similar as when she had the blood clots on the right side. Patient denies hematuria or dysuria, no abdominal pain Related Data Previous Rx's Medication Instructions Recorded apixaban 5 mg tablet (Eliquis) 5 mg PO BID #74 tabs 04/28/23 tramadol 50 mg tablet 50 mg PO BID PRN pain #4 tabs 04/28/23 Allergies Allergy/AdvReac Type Severity Reaction Status Date / Time No Known Allergies Allergy Verified 03/04/23 14:57 [No Known Allergies*] Review of Systems 2 Review of Systems: Constitutional : No Weight loss, No Fever, No Chills, No Night Sweats, No Fatigue, No Malaise ENT/Mouth : No Hearing loss, No Ear Pain, No Nasal Congestion, No Sinus Pain, No Hoarseness, No sore throat, No Rhinorrhea, No Swallowing Difficulty Eyes: No Eye Pain, No Swelling, No Redness, No Foreign Body, No Discharge, No Vision Changes Cardiovascular : No Chest Pain, No SOB, No Dyspnea on Exertion, No Orthopnea, No Edema, No Palpitations Respiratory : No Cough, No Sputum, No Wheezing, No Smoke Exposure, No Dyspnea Gastrointestinal : No Nausea, No Vomiting, No Diarrhea, No Constipation, No abdominal Pain, No Hematochezia, No Melena Genitourinary : no irregular bleeding, No Dysuria, No Urinary Frequency, No Hematuria, No Urinary Incontinence, No Urgency, complaining of left-sided Flank Pain, No Urinary Flow Changes, No Hesitancy Musculoskeletal : No joint pain, No Myalgias, No Joint Swelling Skin : No Skin Lesions, No rash Neuro : No Weakness, No Numbness, No Paresthesias, No Loss of Consciousness, No Dizziness, No Headache Psych : No Anxiety/Panic, No Depression, No SI/HI/AH/VH, No Social Issues, Heme/Lymph: No Bruising, No Bleeding,No Lymphadenopathy Endocrine : No Polyuria, No Polydipsia, No Temperature Intolerance [facility] Past Medical History Medical History 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 Surgical History History of cholecystectomy History of Family History Family History Mother Diabetes Social History Social History Alcohol intake: never Patient Tobacco Use Status: Current someday Tobacco user Cigarettes Per Day: 4 Smoked in Last 30 Days: Yes Use of substances other than those prescribed or required for medical reasons: No Advance Directives: No Advance Directives Information Provided: No Patient : No Sexual orientation: Straight/Heterosexual Gender identity: Female Physical Exam ED Vital Signs: Vital Signs - 24 hr 04/28/23 14:09 04/28/23 18:32 Temperature 96.7 F L Pulse Rate 86 85 Respiratory Rate 16 16 Blood Pressure 151/130 H 135/85 Pulse Oximetry 100 98 Oxygen Delivery Method Room Air Room Air BMI result Body Mass Index 31.1 Const Other: Appearance: Alert. Oriented X3. No acute distress. Eyes: Pupils equal, round and reactive to light. ENT: Pharynx normal. Neck: Normal inspection. Neck supple. No lymph nodes noted. No crepitus CVS: Normal heart rate and rhythm. Pulses normal. Normal S1 and S2 Respiratory: No respiratory distress. Breath sounds normal. No Wheezing. No rales Abdomen: Soft and nontender. No rigidity. No distention. back: Mild CVA tenderness on the left Skin: Skin warm and dry. Normal skin color. Normal skin turgor. Extremities: No lower extremity edema. No Lacerations. No Rash Neuro: Oriented X 3. No motor deficit. No sensory deficit. Moving all extremities. No slurred speech. CN 2 through 12 grossly intact Psych: calm, cooperative, normal affect Course Course Course Narrative: This is an RME: Additional HPI, ROS, PE not included below will be deferred to primary provider. 37 y o female PMH renal vein thrombosis, SLE in 2019 presents for eval of L flank pain x1 day. States she is supposed to be on blood thinners but does not take them. She states she does not have a vena cava. Last time she had this pain was on the right (opposite). States her clots were suspected d/t smoking, current smoker. Denies chest pain, shortness of breath, dizziness, abdominal pain, dysuria, urinary urgency or frequency Plan -- labs, UA Medications Administered Discontinued Medications Generic Name Dose Route Start Last Admin Trade Name Katherine PRN Reason Stop Dose Admin Iohexol 100 ml 04/28/23 19:21 04/28/23 19:22 Iohexol 350 Mg/Ml 100 Ml Infus..Btl IV 04/28/23 19:22 85 ml ONCE ONE Administration Medical Decision Making Medical Decision Making [facility] Narrative: - patient's white blood cell count within normal limits, coagulation pending, chemistry negative ,urinalysis shows a small amount of blood, chronic for patient, no UTI - my interpretation of CT scan of abdomen pelvis: questionable bilateral hydronephrosis, no kidney stones - CT scan of abdomen pelvis with contrast: no evidence of acute venous thrombus, no ureterolithiasis - discussed with the patient that she likely has musculoskeletal pain. - I discussed the patient with Dr. Niño, patient will be restarted on Eliquis. Patient will follow-up with Dr. Niño, however, given that patient has history of a congenital abnormality of the vena cava, patient may have to be referred to vascular surgery in [facility] - discussed with the patient risks versus benefits of being on blood thinners, patient agreeable to start Eliquis. Differential Diagnosis Differential Diagnoses: The differential diagnosis associated with the presentation includes ( Renal venous thrombosis, ureterolithiasis, musculoskeletal pain) Admission/Observation Consideration of admission/observation: Escalation of care including admission/observation considered ( given the patient's history, admission was considered on arrival) Consult Healthcare Provider Management of the patient was discussed with: [facility] [employer] Lab Data MDM Lab Attestation statement: I reviewed the patient's lab results. 04/28/23 16:00 04/28/23 16:00 Labs: Lab Results 04/28/23 04/28/23 04/28/23 Range/Units 16:00 18:24 18:38 WBC 6.9 (4.8-10.8) X10*3/uL RBC 4.66 (4.20-5.50) X10*6/uL Hgb 12.9 (12.0-16.0) g/dl Hct 39.3 (37.0-47.0) % MCV 84.3 (80.0-98.0) fL MCH 27.7 (27.0-33.0) pg MCHC 32.8 (31.0-35.0) g/dl RDW 13.2 (11.0-16.0) % Plt Count 310 (160-400) X10*3/uL MPV 9.9 (9.4-12.3) fL Immature Gran % (Auto) 0.1 (0.0-0.4) % Neut % (Auto) 70.6 (45-73) % Lymph % (Auto) 22.3 (20-40) % [place] % (Auto) 6.3 (2-11) % Eos % (Auto) 0.4 (0-4) % Baso % (Auto) 0.3 (0-2) % Lymph # (Auto) 1.5 (1.2-4.9) X10*3/uL [place] # (Auto) 0.4 (0.1-1.2) X10*3/uL Eos # (Auto) 0.0 (0.0-0.4) X10*3/uL Baso # (Auto) 0.0 (0.0-0.2) X10*3/uL Abs Immat Gran (auto) 0.01 (0.00-0.03) X10*3/uL Absolute Neuts (auto) 4.8 (2.0-8.3) x10*3/uL Absolute Nucleated RBC 0.000 (0.0-0.012) X10*3/uL Nucleated RBC % (auto) 0.0 (0.0-0.2) /100WBC PT 11.3 (11.1-13.3) SEC INR 0.9 (0.9-1.1) APTT 26.9 (26.0-36.4) SEC Sodium 136 (135-145) mmol/L Potassium 3.9 (3.3-5.1) mmol/L Chloride 103 (96-108) mmol/L Carbon Dioxide 25 (22-29) mmol/L Anion Gap 12 (12-20) BUN 6 L (9-16) mg/dL Creatinine 0.71 (0.5-1.4) mg/dL Estim Creat Clear Calc 105.3 Estimated GFR > 60 Random Glucose 108 (60-115) mg/dL Calcium 9.7 (8.4-10.2) mg/dL Total Bilirubin 0.2 (0.0-1.0) mg/dL AST 15 (5-31) U/L ALT 9 (0-31) U/L Alkaline Phosphatase 56 (39-117) U/L Total Protein 8.2 H (6.5-8.0) g/dL Albumin 4.5 (3.5-5.0) g/dL Beta HCG, Quant < 2 mIU/mL Urine Color Yellow Urine Appearance Clear Urine pH 5.5 (5.0-9.0) Ur Specific [place] 1.010 (1.005-1.025) Urine Protein Negative (Neg-Trace) mg/dL Urine Glucose (UA) Negative (Negative) mg/dL Urine Ketones Negative (Negative) mg/dL Urine Blood Small (1+) H (Negative) Urine Nitrite Negative (Negative) Ur Leukocyte Esterase Negative (Negative) Urine RBC 0-2 (0-2) /HPF Urine WBC 0-5 (0-5) /HPF Ur Squamous Epith Cells 11-20 (0-2) /HPF Urine Bacteria 1+ (None Seen) Hyaline Casts 0-2 (0-2) /LPF Independent Interpretation I performed an independent interpretation of an: CT Scan Radiology Impression Discussion of test interpretation with radiology: I have reviewed the radiologist's reading. Radiologist Impression: FINDINGS: LUNG BASES: The visualized lung bases are unremarkable. LIVER, GALLBLADDER, AND BILIARY TREE: The liver is normal in size, shape, and attenuation. No focal hepatic lesion or biliary ductal dilatation is present. Status post cholecystectomy. PANCREAS: Unremarkable. SPLEEN: Unremarkable. ADRENAL GLANDS: Unremarkable. KIDNEYS AND URETERS: The kidneys are normal in size, shape, and attenuation. Fluid density seen in both renal pelves either represent parapelvic cysts or mild pelvocaliectasis. I suspect that this may be parapelvic cysts rather than hydronephrosis. An attempt will be made to obtain a CT scan in a delayed fashion through the kidneys. No hydroureter, or calculi seen. No perinephric stranding. BLADDER: Empty and cannot be evaluated. No calculi GASTROINTESTINAL TRACT: The small and large bowel are unremarkable. The appendix is unremarkable. ABDOMINAL WALL: No significant hernia is appreciated. Tiny periumbilical hernia present in some mild diastases of the rectus muscles. LYMPH NODES: No retroperitoneal lymphadenopathy. 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 Appearances are similar to prior. At the time of the prior study, thrombus was present in the left renal vein which now appears stenotic and drainage is into a lumbar vein. No acute venous thrombus is seen. The portal venous system is patent. The aorta and visualized iliofemoral arteries are unremarkable PELVIC VISCERA: There is a mildly enlarged uterus with areas of enhancement which represent intramural veins. No definite fibroids are seen. No free pelvic fluid. OSSEOUS STRUCTURES: Unremarkable. CT/CT abdomen pelvis w IV con IMPRESSION: 1. A definite cause for the patient's left-sided flank pain has not been found. 2. 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 3. There is no evidence of acute venous thrombus. 4. Bilateral parapelvic cysts versus mild pelvocaliectasis. 5. Mildly enlarged uterus. Fleischner guidelines were followed. Critical Care Time Critical Care Time Critical Care Time: Yes Total Critical Care Time: 60 Attestation: I have personally provided critical care time. Time includes review of lab data, radiology results, discussion with consultants, and monitoring for potential decompensation. Intervention performed as documented. Discharge Plan Discharge Clinical Impression: Flank pain, Renal vein thrombosis Patient Disposition: Home, Self-Care Instructions: Flank Pain (ED) Additional Instructions: please reconsider taking your blood thinners as prescribed. Please follow-up with your primary care physician tomorrow. If you have any worsening or new symptoms, please return to the emergency room or call 911 Prescriptions: New Eliquis 5 mg tablet 5 mg PO BID Qty: 74 0RF Rx Instructions: 10 mg b.i.d. for the 1st 7 days, then 5 mg b.i.d. tramadol 50 mg tablet 50 mg PO BID PRN (Reason: pain) Qty: 4 0RF Referrals: Andrews Niño MD [Physician] - 04/29/23
[2023-04-28 14:09] VITALS: BP 151/130; PULSE 86; RESP 16; TEMP 35.9; O2SAT 100; BMI 31.1
[2023-04-28 16:07] LABS: MANUAL DIFF FLAG NO
[2023-04-28 16:14] LABS: Basophils Percent Auto 0.3 % (0-2); Eosinophils Percent Auto 0.4 % (0-4); Hematocrit 39.3 % (37.0-47.0); Hemoglobin 12.9 g/dl (12.0-16.0); Imm Gran Abs Auto 0.01 X10*3/uL (0.00-0.03); Imm Gran Pct Auto 0.1 % (0.0-0.4); Lymphocytes Absolute Auto 1.5 X10*3/uL (1.2-4.9); Lymphocytes Percent Auto 22.3 % (20-40); Mean Corpuscular HGB Conc 32.8 g/dl (31.0-35.0); Mean Corpuscular Hemoglobin 27.7 pg (27.0-33.0); Mean Corpuscular Volume 84.3 fL (80.0-98.0); Mean Platelet Volume 9.9 fL (9.4-12.3); Monocytes Absolute Auto 0.4 X10*3/uL (0.1-1.2); Monocytes Percent Auto 6.3 % (2-11); Neutrophils Absolute Auto 4.8 x10*3/uL (2.0-8.3); Neutrophils Percent Auto 70.6 % (45-73); Platelet Count 310 X10*3/uL (160-400); Red Blood Count 4.66 X10*6/uL (4.20-5.50); Red Cell Distribution Width 13.2 % (11.0-16.0); White Blood Count 6.9 X10*3/uL (4.8-10.8)
[2023-04-28 16:36] LABS: Alanine Aminotransferase 9 U/L (0-31); Albumin Level 4.5 g/dL (3.5-5.0); Alkaline Phosphatase 56 U/L (39-117); Anion Gap 12 (12-20); Aspartate Amino Transferase 15 U/L (5-31); Bilirubin Total 0.2 mg/dL (0.0-1.0); Blood Urea Nitrogen 6 mg/dL (9-16); Calcium 9.7 mg/dL (8.4-10.2); Carbon Dioxide 25 mmol/L (22-29); Chloride 103 mmol/L (96-108); Creatinine Clr Calc Pharmacy 105.3; Estimated Glomerular Filt Rate > 60; Glucose Random 108 mg/dL (60-115); HCG Quantitative < 2 mIU/mL; Potassium 3.9 mmol/L (3.3-5.1); Sodium 136 mmol/L (135-145); Total Protein 8.2 g/dL (6.5-8.0)
[2023-04-28 18:32] VITALS: BP 135/85; PULSE 85; RESP 16; O2SAT 98
[2023-04-28 18:33] LABS: Appearance Urine Clear; Color Urine Yellow; Glucose Urine UA Negative (Negative); Leukocyte Esterase Urine Negative (Negative); Nitrite Urine Negative (Negative); PH 5.5 (5.0-9.0); UMIC TRIGGER UACC YES; Urine Blood Small (1+) (Negative); Urine Ketones Negative (Negative); Urine Protein Negative (Neg-Trace)
--- NOTE | 2023-04-28 18:42 | PC.NURSE ---
20gIV placed in the right AC w/o complications. labs drawn and sent to lab per provider order. pt resting comfortably in room w/ son who is also admitted in ED. in no apparent distress. respirations even and unlabored. call ortiz placed within reach.
[2023-04-28 18:46] LABS: Bacteria Urine 1+ (None Seen); Hyaline Casts Urine 0-2 /LPF (0-2); RBC Urine 0-2 /HPF (0-2); WBC Urine 0-5 /HPF (0-5)
[2023-04-28 18:54] LABS: INTERNATIONAL NORM RATIO 0.9 (0.9-1.1); Prothrombin Time 11.3 SEC (11.1-13.3)
[2023-04-28 18:57] LABS: Partial Thromboplastin Time 26.9 SEC (26.0-36.4)
[2023-04-28] MEDS: iohexoL 350 MG/ML 100 ML INFUS..BTL IV (19:22)
== END 2023-04-28 22:40 | disposition home or self-care (01) ==
PROVIDERS: Physician Assistant; Emergency Provider Emergency Medicine; PCP General Practice
DX: R10.9 Unspecified abdominal pain (principal); F17.210 Nicotine dependence, cigarettes, uncomplicated; Z91.148 Patient's other noncompliance with medication regimen for other reason; Z71.6 Tobacco abuse counseling; Z79.899 Other long term (current) drug therapy
CPT/HCPCS: 36415; 74177; 80053; 81001; 84702; 85025; 85610; 85730; 99284; Q9967

== ENCOUNTER 2023-08-10 14:39 | Outpatient (AMB) | payer MEDICAID, SELFPAY ==
[2023-08-10 14:42] VITALS: BP 102/64; TEMP 36.1; BMI 29.2
--- NOTE | 2023-08-10 14:42 | A.OFFVIS_ITS ---
Intake Vital Signs 08/10/23 14:42 Height 5 ft 2 in Weight 159 lb 6.307 oz BMI 29.2 BP 102/64 Blood Pressure Location Rt brachial Position Sitting Temp 97.0 F Intake Visit Reasons: Positive CARLITO Intake Note: New pt presents today for consult. Previously seen by Dr Lino in 2020. Hx of +CARLITO, renal vein thrombosis/nutcracker syndrome. Used to be on Plaquenil before, has been off for some time. C/o intermittent joint pain and kidney pain Sole Conditioner Required: No Accompanied by: Self / Same As Patient Allergies No Known Allergies [No Known Allergies*] Allergy (Verified 08/10/23 14:45) Medication List - Last Reconciled 08/10/23 by Ania Aparicio MD apixaban (Eliquis) 5 mg PO BID metronidazole 500 mg PO BID 7 days tramadol 50 mg PO BID PRN HPI HPI Comments History of Present Illness Details 38yoF prevents for follow-up of a positive CARLITO in the setting of spontaneous renal vein thrombosis. She was last seen by Dr. Lino in 2020. Patient had positive CARLITO and borderline positive dsDNA. Patient did not fully fulfill lupus criteria but she was started on hydroxychloroquine due to her history of renal vein thrombosis. She stated that she took hydroxychloroquine for about a year and she stopped it when Dr. Lino left the rheumatology practice. 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 She states that she had been taking the Eliquis regularly until about 1 year ago w hen her PCP left the practice. She restarted Eliquis 2 months ago. Back in April patient presented to the ER with flank pain. CT abdomen was unremarkable except for kidney cysts. Over the last 2 months or so patient has been having some pain in her wrists, elbows when she leans on them, knees, ankles. Associated with morning stiffness lasting 1 hour. Some swelling of her fingers in the morning, feels that her rings are tight. 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 She denies any skin rashes. Denies any history suggestive of Raynaud's. No fevers or weight loss. Denies any mouth ulcers or hair loss. Per PCP patient had hypercoagulable workup by Hematology and it was negative Patient on Plaquenil 200 mg daily since July 2019. Patient continues to do well. She denies any joint pain or swelling. Also denies any skin rash or photosensitivity. Continues to take warfarin daily for her history of renal vein thrombosis, this has not recurred. Initial history by Dr. Lino: Patient presented to hospital on 06/14/2019 with left flank pain and was found to have an extensive renal vein thrombosis. She has heparinized and then transitioned to Coumadin. At the time patient was found to have a clot, she was also smoking and on oral contraception pills. History of 3 first trimester miscarriages and 2 live births Maternal GM had a stroke, Paternal GF of a PE. No family history of RA, SLE or thyroid disease. 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 Surgical History H/O abdominoplasty History of cholecystectomy History of Family History Mother Diabetes Social History Alcohol intake: never Patient Tobacco Use Status: Current someday Tobacco user Cigarettes Per Day: 4 Sexual orientation: Straight/Heterosexual Gender identity: Female Female Reproductive History Menstrual Total pregnancies: 5 Full term: 2 Ab spontaneous: 3 Review of Systems Const Denies fever(s) and Denies weight loss ENT Details: Mouth sores Musc Reports arthralgias, Reports joint swelling and Reports stiffness Skin/Breast Denies rash Physical Exam Vital Signs: Last Vital Signs Temp 97.0 F 08/10/23 14:42 BP 102/64 08/10/23 14:42 BMI result Body Mass Index 29.2 Const General: cooperative, healthy appearing and comfortable Nutritional Appearance: overweight Orientation/consciousness: patient oriented x3 Limitations: no limitations HEENT Head: Yes normocephalic and Yes atraumatic Mouth: moist mucous membranes Resp Effort & Inspection: normal respiratory effort and able to speak in complete sentences Auscultation: clear to auscultation bilaterally Cardio Rate: regular rate GI Inspection: No distended Palpation (GI): Soft to palpation and nontender Skin Other: Few dilated veins on chest and lower extremities General skin exam: no rashes or lesions noted Neuro General: patient oriented x3 Extrem Other: No active synovitis No swollen or tender joints Normal range of motion of hands, fingers, wrists, elbows and shoulders without pain Normal range of motion of knees without pain Normal nailfold capillaroscopy Assessment & Plan Assessment & Plan (1) CARLITO positive: Code(s): R76.8 - Other specified abnormal immunological findings in serum Plan: 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 She was evaluated by vascular surgeon and advised to stay on anticoagulation lifelong. She was evaluated by Dr. Lino and started on hydroxychloroquine. Which she took for about 1 year. Will order comprehensive serology to screen for underlying autoimmune rheumatic disease. (2) Renal vein thrombosis: Code(s): I82.3 - Embolism and thrombosis of renal vein Plan: Check antiphospholipid antibodies Plan I spent 47 minutes reviewing patient's chart, evaluating patient, ordering diagnostic workup, counseling patient and documenting in the chart Orders: Orders Comprehensive Met. Panel Today M32.9 - Systemic lupus erythematosus, unspecified C Reactive Protein Today M32.9 - Systemic lupus erythematosus, unspecified Erythrocyte Sedimentation Rate Today M32.9 - Systemic lupus erythematosus, unspecified Anti DNA DS Antibody Today M32.9 - Systemic lupus erythematosus, unspecified Complement C3 Today M32.9 - Systemic lupus erythematosus, unspecified Complement C4 Today M32.9 - Systemic lupus erythematosus, unspecified Sjogren's Antibodies Today M32.9 - Systemic lupus erythematosus, unspecified Beta-2 Glycoprotein Antibody Today I82.3 - Embolism and thrombosis of renal vein Cardiolipin Antibodies Today I82.3 - Embolism and thrombosis of renal vein Complete Blood Count Auto Diff Today M32.9 - Systemic lupus erythematosus, unspecified Immunofixation Pnl, Serum Today M32.9 - Systemic lupus erythematosus, unspecified Protein Electrophoresis, Serum Today M32.9 - Systemic lupus erythematosus, unspecified Anti Extractable Nuclear Ag Today M32.9 - Systemic lupus erythematosus, unspecified DNA Double Stranded-Crithidia Today M32.9 - Systemic lupus erythematosus, unspecified Protein Creatinine Ratio, Ur Today M32.9 - Systemic lupus erythematosus, unspecified UA w Microscopic Today M32.9 - Systemic lupus erythematosus, unspecified Lupus Anticoagulant Panel Today I82.3 - Embolism and thrombosis of renal vein Coding Level of Care Code New Pt Level 4 (83126) Diagnoses CARLITO positive R76.8 Renal vein thrombosis I82.3
== END 2023-08-10 15:03 | disposition home or self-care (01) ==
PROVIDERS: PCP General Practice; Visit Provider Student in an Organized Health Care Education/Training Program
DX: R76.8 Other specified abnormal immunological findings in serum (principal); I82.3 Embolism and thrombosis of renal vein
CPT/HCPCS: 99204

== ENCOUNTER → 2023-08-10 14:39 | Outpatient (BNVA) | payer MEDICAID, SELFPAY | PROVIDERS: PCP General Practice; Visit Provider Student in an Organized Health Care Education/Training Program | DX: R76.8 Other specified abnormal immunological findings in serum (principal); I82.3 Embolism and thrombosis of renal vein | CPT/HCPCS: 99202 ==

== ENCOUNTER 2023-08-29 08:19 | Outpatient (REF) | payer MEDICAID, SELFPAY ==
[2023-08-29 08:42] LABS: MANUAL DIFF FLAG NO
[2023-08-29 09:26] LABS: Basophils Percent Auto 0.4 % (0-2); Eosinophils Percent Auto 0.4 % (0-4); Hematocrit 41.1 % (37.0-47.0); Hemoglobin 13.5 g/dl (12.0-16.0); Imm Gran Abs Auto 0.01 X10*3/uL (0.00-0.03); Imm Gran Pct Auto 0.2 % (0.0-0.4); Lymphocytes Absolute Auto 1.2 X10*3/uL (1.2-4.9); Lymphocytes Percent Auto 24.3 % (20-40); Mean Corpuscular HGB Conc 32.8 g/dl (31.0-35.0); Mean Corpuscular Hemoglobin 27.9 pg (27.0-33.0); Mean Corpuscular Volume 84.9 fL (80.0-98.0); Mean Platelet Volume 10.5 fL (9.4-12.3); Monocytes Absolute Auto 0.5 X10*3/uL (0.1-1.2); Monocytes Percent Auto 9.2 % (2-11); Neutrophils Absolute Auto 3.3 x10*3/uL (2.0-8.3); Neutrophils Percent Auto 65.5 % (45-73); Platelet Count 325 X10*3/uL (160-400); Red Blood Count 4.84 X10*6/uL (4.20-5.50); Red Cell Distribution Width 13.2 % (11.0-16.0); White Blood Count 5.1 X10*3/uL (4.8-10.8)
[2023-08-29 10:04] LABS: Erythrocyte Sedimentation Rate 21 MM/HR (0-20)
[2023-08-29 10:22] LABS: Alanine Aminotransferase 13 U/L (0-31); Albumin Level 4.9 g/dL (3.5-5.0); Alkaline Phosphatase 51 U/L (39-117); Anion Gap 12 (12-20); Aspartate Amino Transferase 18 U/L (5-31); Bilirubin Total 0.3 mg/dL (0.0-1.0); Blood Urea Nitrogen 13 mg/dL (9-16); C Reactive Protein < 0.10 mg/dL (< or = 0.50); Calcium 10.2 mg/dL (8.4-10.2); Carbon Dioxide 24 mmol/L (22-29); Chloride 107 mmol/L (96-108); Estimated Glomerular Filt Rate > 60; Glucose Random 87 mg/dL (60-115); Sodium 139 mmol/L (135-145)
[2023-08-29 10:45] LABS: Appearance Urine Clear; Color Urine Yellow; Glucose Urine UA Negative (Negative); Leukocyte Esterase Urine Negative (Negative); Nitrite Urine Negative (Negative); PH 5.5 (5.0-9.0); Specific Gravity - Urine >= 1.030 (1.005-1.025); UMIC TRIGGER UA YES; Urine Blood Moderate (2+) (Negative); Urine Ketones Trace mg/dL (Negative); Urine Protein 30 (1+) mg/dL (Neg-Trace)
[2023-08-29 10:50] LABS: Bacteria Urine Trace (None Seen); WBC Urine 0-5 /HPF (0-5)
[2023-08-29 11:38] LABS: Protein/Creatinine Ratio, Ur 0.09 (<0.2); Total Protein Urine Random 28 mg/dL (<12)
[2023-08-31 09:33] LABS: Complement C3 160 mg/dL (83-193)
[2023-08-31 12:09] LABS: Prot Elec - Alpha1 0.3 g/dL (0.2-0.3); Prot Elec - Alpha2 0.7 g/dL (0.5-0.9); Prot Elec - Beta 1 0.7 g/dL (0.4-0.6); Prot Elec - Beta 2 0.6 g/dL (0.2-0.5); Prot Elec - Gamma 1.6 g/dL (0.8-1.7); Prot Elec - Total Protein 8.8 g/dL (6.1-8.1)
[2023-09-01 22:04] LABS: PTT (LAC) Screen 32 sec (<=40)
[2023-09-02 13:04] LABS: IgA 349 mg/dL (47-310); IgG 1881 mg/dL (600-1640); IgM 204 mg/dL (50-300)
[2023-09-02 17:13] LABS: Cardiolipin IgG Ab <2.0 GPL-U/mL; Cardiolipin IgM Ab 2.7 MPL-U/mL
[2023-09-02 17:43] LABS: Anti DNA DS Antibody 6 IU/mL; Antibody to SS-A Antigen <1.0 NEG AI (<1.0 NEG); Antibody to SS-B Antigen <1.0 NEG AI (<1.0 NEG); SM/Ribonucleoprotein Ab <1.0 NEG AI (<1.0 NEG); Smith Protein <1.0 NEG AI (<1.0 NEG)
[2023-09-04 14:59] LABS: DNAds, Crithidia Antibody Negative (Negative)
[2023-09-05 07:38] LABS: Beta-2 Glycoprotein IgA <2.0 U/mL (<20.0); Beta-2 Glycoprotein IgG <2.0 U/mL (<20.0); Beta-2 Glycoprotein IgM 3.7 U/mL (<20.0)
== END 2023-08-29 08:20 | disposition home or self-care (01) ==
LOC: HO.LAB 08:19
PROVIDERS: PCP General Practice; Visit Provider Student in an Organized Health Care Education/Training Program
DX: M32.9 Systemic lupus erythematosus, unspecified (principal); I82.3 Embolism and thrombosis of renal vein
CPT/HCPCS: 36415; 80053; 81001; 82570; 82784; 84156; 84165; 85025; 85597; 85598; 85613; 85652; 85730; 86140; 86146; 86147; 86160; 86225; 86235; 86255; 86334

== ENCOUNTER 2023-10-20 11:30 | Outpatient (AMB) | payer MEDICAID, SELFPAY ==
--- NOTE | 2023-10-20 11:31 | A.OFFVIS_ITS ---
Intake Vital Signs 10/20/23 11:32 Height 5 ft 2 in Weight 161 lb 6.054 oz BMI 29.5 BP 104/62 Blood Pressure Location Rt brachial Position Sitting Pulse 83 Pulse Source Pulse Oximeter Pulse Oximetry (%) 100 Oxygen Delivery Method Room Air Intake Visit Reasons: CARLITO +ve Intake Note: Patient last seen 08/10/23 presents today for follow up and test results. 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 She continues to feel about the same. She has no new symptoms. She denies any fevers, skin rashes. She states that she gets some stiffness and pain of her hands in the morning. Symptoms are very minimal. She takes tramadol as needed for kidney pain. She has not taken tramadol in a long time. 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 She was last seen by Dr. Lino in 2020. Patient had positive CARLITO and borderline positive dsDNA. Patient did not fully fulfill lupus criteria but she was started on hydroxychloroquine due to her history of renal vein thrombosis. She stated that she took hydroxychloroquine for about a year and she stopped it when Dr. Lino left the rheumatology practice. 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 She states that she had been taking the Eliquis regularly until about 1 year ago when her PCP left the practice. She restarted Eliquis 2 months ago. Back in April patient presented to the ER with flank pain. CT abdomen was unremarkable except for kidney cysts. Over the last 2 months or so patient has been having some pain in her wrists, elbows when she leans on them, knees, ankles. Associated with morning stiffness lasting 1 hour. Some swelling of her fingers in the morning, feels that her rings are tight. 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 She denies any skin rashes. Denies any history suggestive of Raynaud's. No fevers or weight loss. Denies any mouth ulcers or hair loss. Per PCP patient had hypercoagulable workup by Hematology and it was negative Patient on Plaquenil 200 mg daily since July 2019. Patient continues to do well. She denies any joint pain or swelling. Also denies any skin rash or photosensitivity. Continues to take warfarin daily for her history of renal vein thrombosis, this has not recurred. Initial history by Dr. Lino: Patient presented to hospital on 06/14/2019 with left flank pain and was found to have an extensive renal vein thrombosis. She has heparinized and then transitioned to Coumadin. At the time patient was found to have a clot, she was also smoking and on oral contraception pills. History of 3 first trimester miscarriages and 2 live births Maternal GM had a stroke, Paternal GF of a PE. No family history of RA, SLE or thyroid disease. 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 Surgical History H/O abdominoplasty History of cholecystectomy History of Family History Mother Diabetes Social History Alcohol intake: never Patient Tobacco Use Status: Current someday Tobacco user Cigarettes Per Day: 4 Sexual orientation: Straight/Heterosexual Gender identity: Female Review of Systems Const Denies fever(s) and Denies weight loss Musc Reports arthralgias and Denies joint swelling Skin/Breast Denies rash Physical Exam Vital Signs: Last Vital Signs Pulse 83 10/20/23 11:32 BP 104/62 10/20/23 11:32 Pulse Ox 100 10/20/23 11:32 Oxygen Delivery Method Room Air 10/20/23 11:32 BMI result Body Mass Index 29.5 Const General: cooperative, healthy appearing and comfortable Nutritional Appearance: overweight Orientation/consciousness: patient oriented x3 Limitations: no limitations HEENT Head: Yes normocephalic and Yes atraumatic Mouth: moist mucous membranes Resp Effort & Inspection: normal respiratory effort and able to speak in complete sentences Cardio Rate: regular rate Skin Other: Few dilated veins on chest and lower extremities General skin exam: no rashes or lesions noted Neuro General: patient oriented x3 Extrem Other: No active synovitis No swollen or tender joints Normal range of motion of hands, fingers, wrists, elbows and shoulders without pain Normal range of motion of knees without pain Normal nailfold capillaroscopy Assessment & Plan Assessment & Plan (1) CARLITO positive: Code(s): R76.8 - Other specified abnormal immunological findings in serum Plan: 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 She was evaluated by vascular surgeon and advised to stay on anticoagulation lifelong. She was evaluated by Dr. Lino and started on hydroxychloroquine. Which she took for about 1 year. She comes back for re- evaluation. Upon evaluation I do not see any signs suggestive of an active autoimmune rheumatic disease. Patient has borderline dsDNA. There are no cytopenias. No proteinuria. She has normal C3-C4, normal inflammatory markers. I do not see any to restart hydroxychloroquine at this point however would like to continue to monitor patient clinically. Re-evaluate in 6 months (2) Renal vein thrombosis: Code(s): I82.3 - Embolism and thrombosis of renal vein Plan: Antiphospholipid antibodies negative. Per PCPs note, patient was evaluated by Hematology and thrombophilia workup was negative Plan I spent 27 minutes reviewing patient's chart, evaluating patient, ordering diagnostic workup, counseling patient and documenting in the chart Coding Level of Care Code Est Pt Level 4 (45209) Diagnoses CARLITO positive R76.8 Renal vein thrombosis I82.3
[2023-10-20 11:32] VITALS: BP 104/62; PULSE 83; O2SAT 100; BMI 29.5
== END 2023-10-20 12:37 | disposition home or self-care (01) ==
PROVIDERS: PCP General Practice; Visit Provider Student in an Organized Health Care Education/Training Program
DX: R76.8 Other specified abnormal immunological findings in serum (principal); I82.3 Embolism and thrombosis of renal vein
CPT/HCPCS: 99214

== ENCOUNTER → 2023-10-20 11:30 | Outpatient (BNVA) | payer MEDICAID, SELFPAY | PROVIDERS: PCP General Practice; Visit Provider Student in an Organized Health Care Education/Training Program | DX: R76.8 Other specified abnormal immunological findings in serum (principal); I82.3 Embolism and thrombosis of renal vein; Q26.8 Other congenital malformations of great veins | CPT/HCPCS: 99212 ==

== ENCOUNTER 2024-03-15 13:04 | Outpatient (AMB) | payer MEDICAID, SELFPAY ==
--- NOTE | 2024-03-15 13:06 | MHC.OFFVIS ---
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 Doing well with no concerns: vaginal dryness x 4 months, reports white discharge. No pelvic pain or urinary symptoms. She tries to eat healthy and stays active with exercise, skips meals due to work schedule. Regular monthly menses. Uses natural family planning christina. STI screening offered; she accepts. Declines blood work. Denies family history of breast, ovarian or colon cancer. Last pap smear 2018, negative. 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 Surgical History H/O abdominoplasty History of cholecystectomy History of Family History Mother Diabetes Social History (Updated 03/15/24 @ 13:46 by Micaela Britton CNM) Alcohol intake: never Patient Tobacco Use Status: Former Tobacco user Cigarettes Per Day: 4 Sexual orientation: Straight/Heterosexual Gender identity: Female Female Reproductive History Menstrual Duration of menses: 6-7 days Date of last menstrual period: 02/27/24 control method: none Total pregnancies: 5 Full term: 2 Number of Living Children: 2 Ab spontaneous: 3 Date of last pap smear: 06/21/19 (neg pap and hpv) Review of Systems Const All systems reviewed & are unremarkable except as noted in HPI and below Reports as per HPI Eyes Reports no additional complaints ENT Reports no additional complaints Card Reports no additional complaints Resp Reports no additional complaints GI Reports as per HPI and Reports no additional complaints Reports as per HPI Musc Reports no additional complaints Skin/Breast Reports as per HPI Neuro Reports no additional complaints Psych Reports no additional complaints Endo Reports no additional complaints Mohit/Lymph Reports no additional complaints Aller/Immun Reports no additional complaints Physical Exam Const General: cooperative, healthy appearing, no acute distress, well developed and alert Orientation/consciousness: patient oriented x3 HEENT Head: Yes normal to inspection Eyes General: appearance normal, both eyes and all related structures Neck Neck: Yes normal visual inspection Thyroid: Thyroid normal Chest Chest palpation & inspection: normal inspection of the chest and other (no puckering, dimpling, peau de orange, retraction, discharge, masses) Breast/axilla inspection: normal inspection of the breasts Breast/axilla palpation: normal palpation of the breasts Resp Effort & Inspection: normal respiratory effort GI Inspection: Yes normal to inspection Palpation (GI): Soft to palpation Rectal Exam - Female: deferred General: Yes bladder normal to palpation External Female Exam: normal external appearance and normal appearance of the urethra Speculum Exam - Vagina: normal appearance of the vagina, normal palpation and normal vaginal discharge (White, dryer surface area) Speculum Exam - Cervix: normal appearance of the cervix and normal palpation Bimanual exam- vagina & uterus: normal bimanual exam, normal palpation, uterine size normal, bladder normal to palpation, normal palpation and non-tender Bimanual Exam- Adnexa, other: no masses Skin General skin exam: no rashes or lesions noted Rashes: no rashes Neuro General: patient oriented x3 Cognition (Neuro): normal cognition Extrem General: Yes normal to inspection Psych Attitude: cooperative Thought process: Normal thought process present Assessment & Plan Assessment & Plan (1) Encounter for well woman exam with routine gynecological exam: Code(s): Z01.419 - Encounter for gynecological examination (general) (routine) without abnormal findings Category: Medical Plan Discussed: Current recommendations for pap smears per ASCCP guidelines. Breast awareness and periodic breast exams. Maintain a healthy lifestyle including a well balanced diet and routine exercise. Vaginal lubricant and moisturizer products. Patient verbalizes understanding and agrees to the plan of care. She was given opportunity to ask questions and all questions were answered to the best of my ability. RTO in one year for annual executive personal assistant examination. This note is constructed using voice recognition software. While every effort has been made to ensure accuracy, social work faculty member errors may have been included. Coding Level of Care Code Est Pt Prev Care 18-39y(59981) Diagnoses Encounter for well woman exam with routine gynecological exam Z01.419
[2024-03-15 13:12] VITALS: BP 112/74; BMI 28.9
== END 2024-03-15 13:59 | disposition home or self-care (01) ==
PROVIDERS: PCP General Practice; Visit Provider Advanced Practice Midwife
DX: Z01.419 Encounter for gynecological examination (general) (routine) without abnormal findings (principal)
CPT/HCPCS: 99395

== ENCOUNTER 2024-03-15 13:04 | Outpatient (REF) | payer MEDICAID, SELFPAY | END 2024-03-15 13:05 | disposition home or self-care (01) | LOC: HO.LAB 13:04 | PROVIDERS: PCP General Practice; Visit Provider Advanced Practice Midwife | DX: Z01.419 Encounter for gynecological examination (general) (routine) without abnormal findings (principal) | CPT/HCPCS: 99395 ==

== ENCOUNTER 2024-03-15 14:13 | Outpatient (REF) | payer MEDICAID, SELFPAY ==
[2024-03-15 17:09] LABS: Bacterial Vaginosis PCR POSITIVE (Negative); Candida Group PCR NOT DETECTED (Not Detect); Candida glab krusei PCR NOT DETECTED (Not Detect); Trichomonas vaginalis PCR NOT DETECTED (Not Detect)
[2024-03-15 17:37] LABS: CT PCR NOT DETECTED (Not Detect.); NG PCR NOT DETECTED (Not Detect.)
[2024-03-17 15:43] LABS: HPV mRNA E6/E7 Not Detected (Not Detected)
== END 2024-03-15 14:14 | disposition home or self-care (01) ==
LOC: HO.LNP 14:13
PROVIDERS: Visit Provider Advanced Practice Midwife
DX: Z01.419 Encounter for gynecological examination (general) (routine) without abnormal findings (principal); Z20.2 Contact with and (suspected) exposure to infections with a predominantly sexual mode of transmission
CPT/HCPCS: 0352U; 87491; 87591; 87624; 88175; 99395

== ENCOUNTER 2024-07-04 08:59 | Outpatient (AMB) | payer MEDICAID, SELFPAY ==
--- NOTE | 2024-07-04 09:04 | A.OFFVIS_ITS ---
Vital Signs 07/04/24 09:08 Height 5 ft 2 in Weight 158 lb 8.198 oz BMI 29.0 BP 102/68 Blood Pressure Location Rt brachial Position Sitting Pulse 67 Pulse Source Pulse Oximeter Pulse Oximetry (%) 99 Oxygen Delivery Method Room Air Intake Visit Reasons: +CARLITO/CM Intake Note: Patient presents for +CARLITO. Allergies No Known Allergies [No Known Allergies*] Allergy (Verified 07/04/24 09:08) Medication List - Last Reconciled 07/04/24 by Ania Aparicio MD apixaban (Eliquis) 5 mg PO BID tramadol 50 mg PO BID PRN HPI Comments Details: 38-year-old female with IVC aplasia complicated by renal vein thrombosis presents for follow-up. She continues to feel about the same. She has no new symptoms. She denies any fevers, skin rashes. Denies any weight change. She states that she feels good. She has not been consistently compliant with taking her Eliquis. 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 She was last seen by Dr. Lino in 2020. Patient had positive CARLITO and borderline positive dsDNA. Patient did not fully fulfill lupus criteria but she was started on hydroxychloroquine due to her history of renal vein thrombosis. She stated that she took hydroxychloroquine for about a year and she stopped it when Dr. Lino left the rheumatology practice. 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 She states that she had been taking the Eliquis regularly until about 1 year ago when her PCP left the practice. She restarted Eliquis 2 months ago. Back in April patient presented to the ER with flank pain. CT abdomen was unremarkable except for kidney cysts. Over the last 2 months or so patient has been having some pain in her wrists, elbows when she leans on them, knees, ankles. Associated with morning stiffness lasting 1 hour. Some swelling of her fingers in the morning, feels that her rings are tight. 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 She denies any skin rashes. Denies any history suggestive of Raynaud's. No fevers or weight loss. Denies any mouth ulcers or hair loss. Per PCP patient had hypercoagulable workup by Hematology and it was negative Patient on Plaquenil 200 mg daily since July 2019. Patient continues to do well. She denies any joint pain or swelling. Also denies any skin rash or photosensitivity. Continues to take warfarin daily for her history of renal vein thrombosis, this has not recurred. Initial history by Dr. Lino: Patient presented to hospital on 06/14/2019 with left flank pain and was found to have an extensive renal vein thrombosis. She has heparinized and then transitioned to Coumadin. At the time patient was found to have a clot, she was also smoking and on oral contraception pills. History of 3 first trimester miscarriages and 2 live births Maternal GM had a stroke, Paternal GF of a PE. No family history of RA, SLE or thyroid disease. 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 Surgical History H/O abdominoplasty History of cholecystectomy History of Family History Mother Diabetes Social History Alcohol intake: never Patient Tobacco Use Status: Former Tobacco user Cigarettes Per Day: 4 Sexual orientation: Straight/Heterosexual Gender identity: Female Female Reproductive History Menstrual control method: natural family planning Total pregnancies: 5 Full term: 2 Number of Living Children: 2 Ab spontaneous: 3 Physical Exam Vital Signs: Last Vital Signs Pulse 67 07/04/24 09:08 BP 102/68 07/04/24 09:08 Pulse Ox 99 07/04/24 09:08 Oxygen Delivery Method Room Air 07/04/24 09:08 BMI result Body Mass Index 29.0 Assessment & Plan Assessment & Plan (1) CARLITO positive: Code(s): R76.8 - Other specified abnormal immunological findings in serum Category: Medical Plan: This is a 39-year-old female with IVC aplasia who presented in 2018 with renal vein thrombosis. She was evaluated by vascular surgeon and advised to stay on anticoagulation lifelong. She was evaluated by Dr. Lino in the past and started on hydroxychloroquine. Which she took for about 1 year. Upon evaluation I do not see any signs suggestive of an active autoimmune rheuma tic disease. Labs this year showed borderline dsDNA. There are no cytopenias. No proteinuria. She has normal C3-C4, normal inflammatory markers. I do not see a need to restart hydroxychloroquine at this point however would like to continue to monitor patient clinically. Today patient is doing well with no signs suggestive of active disease. Labs before next visit in 1 year (2) Renal vein thrombosis: Code(s): I82.3 - Embolism and thrombosis of renal vein Category: Medical Plan: Antiphospholipid antibodies negative. Per PCPs note, patient was evaluated by Hematology and thrombophilia workup was negative Patient has not been compliant with her Eliquis. Advised patient on the importance of being compliant with Eliquis. Plan I spent 27 minutes reviewing patient's chart, evaluating patient, ordering diagnostic workup, counseling patient and documenting in the chart Orders: Orders C Reactive Protein 1 Year M32.9 - Systemic lupus erythematosus, unspecified Erythrocyte Sedimentation Rate 1 Year M32.9 - Systemic lupus erythematosus, unspecified Complete Blood Count Auto Diff 1 Year M32.9 - Systemic lupus erythematosus, unspecified Anti DNA DS Antibody 1 Year M32.9 - Systemic lupus erythematosus, unspecified Complement C3 1 Year M32.9 - Systemic lupus erythematosus, unspecified Complement C4 1 Year M32.9 - Systemic lupus erythematosus, unspecified Protein Creatinine Ratio, Ur 1 Year M32.9 - Systemic lupus erythematosus, unspecified UA w Microscopic 1 Year M32.9 - Systemic lupus erythematosus, unspecified Comprehensive Met. Panel 1 Year M32.9 - Systemic lupus erythematosus, unspecified Coding Level of Care Code Est Pt Level 4 (05113) Diagnoses CARLITO positive R76.8 Renal vein thrombosis I82.3
[2024-07-04 09:08] VITALS: BP 102/68; PULSE 67; O2SAT 99; BMI 29.0
== END 2024-07-04 10:41 | disposition home or self-care (01) ==
PROVIDERS: PCP General Practice; Visit Provider Student in an Organized Health Care Education/Training Program
DX: R76.8 Other specified abnormal immunological findings in serum (principal); I82.3 Embolism and thrombosis of renal vein
CPT/HCPCS: 99214

== ENCOUNTER → 2024-07-04 08:59 | Outpatient (BNVA) | payer MEDICAID, SELFPAY | PROVIDERS: PCP General Practice; Visit Provider Student in an Organized Health Care Education/Training Program | DX: R76.8 Other specified abnormal immunological findings in serum (principal); I82.3 Embolism and thrombosis of renal vein | CPT/HCPCS: 99212 ==

== ENCOUNTER 2024-10-03 15:30 | Outpatient (REF) | payer MEDICAID, SELFPAY ==
--- OUTSIDE RECORDS SUMMARY | 2024-10-03 18:21 | XMS_ITS | Encounter Summary ---
Author Organization [facility] Address [address] [place] [address] [address] [place] [address] Care Team Providers Care Cement Sprayer Helper Name Role Phone Diann Serrano MD Primary Care Provider [phone] Encounter Details Date Type Department Care Team (Latest Contact Info) Description 05/23/2020 Abstract [facility] CONVERSIONS Dental, Provider, DDS Social History Tobacco Use Types Packs/Day Years Used Date Smoking Tobacco: Never Assessed Comments Unknown Sex and Gender Information Value Date Recorded Sex Assigned at Female 06/02/2022 10:30 AM EDT Legal Sex Female 10:30 AM EDT Gender Identity Female 06/02/2022 10:30 AM EDT Sexual Orientation Straight 06/02/2022 10 :30 AM EDT documented as of this encounter Plan of Treatment Not on file documented as of this encounter Visit Diagnoses Not on filedocumented in this encounter Care Teams Cement Sprayer Helper Relationship Specialty Start Date End Date Diann Serrano MD [address] [place] [id number] PCP - General Family Medicine 08/17/20 documented as of this encounter
--- OUTSIDE RECORDS SUMMARY | 2024-10-03 18:21 | XMS_ITS | Encounter Summary ---
Author Organization [employer] Address [address] [place] [address] [address] [place] [address] Care Team Providers Care Director Of Premium Seat Sales Name Role Phone Diann Serrano MD Primary Care Provider [phone] Reason for Visit * Reason Comments Pre-visit Planning SDOH screening negat butch and tobacco screening negative Encounter Details Date Type Department Care Team ([facility] Contact Info) Description 09/21/2024 Patient Outreach [facility] [address] [place] [address] Diann Serrano MD [address] [place] [address] Pre-visit Planning (SDOH screening negative and tobacco screening negative) Social History Tobacco Use Types Packs/Day Years Used Date Smoking Tobacco: Former Cigarettes Q uit: 05/08/2023 Passive Smoke Exposure: Current Alcohol Use Standard Drinks/Week Comments Not Asked 0 (1 standard drink = 0.6 oz pur e alcohol) Housing Stability Answer Date Recorded What is your housing situation today? I have renetta dobson 06/05/[address] you li ve. Do you have problems with any of the following? None of the above 06/05/2023 Food Insecurity Answer Date Recorded Within the past 12 months, y ou worried that your food would run out before you got money to buy more: Never True 06/05/2023 Within the past 12 months,th e food you bought just didn't last and you didn't have enough money to get more: Never True 10/2022 Transportation Answer Date Recorded In the past 12 months, has l ack of transportation kept you from medical appts, meetings, work or from getting things needed for daily living? No 11/30/2023 Utilities Answer Date Recorded In the past 12 months, has t he electric, gas, oil or water company threatened to shut off services in your home? No 06/05/2023 Internet Access Answer Date Recorded Internet Access Q1 Yes 09/21/2024 Internet Access Q2 Not on file 09/21/2024 Comments No Sex and Gender Information Value Date Recorded Sex Assigned at Female 06/02/2022 10:30 AM EDT Legal Sex Female 10:30 AM EDT Gender Identity Female 06/02/2022 10:30 AM EDT Sexual Orientation Straight 06/02/2022 10 :30 AM EDT documented as of this encounter Progress Notes * Toshia Bright - 09/21/2024 9:20 AM EST CC Toshia placed successful outbound call to patient for pre-visit planning. Patient name and confirmed. Patient confirms appt date and time, and has transportation. Biggest concern for appointment at this time is left side abdominal pain Patient advised to bring to appointment a photo id and insurance card. Appropriate screenings completed in anticipation of appointment. documented in this encounter Plan of Treatment Not on file documented as of this encounter Visit Diagnoses Not on filedocumented in this encounter Care Teams Director Of Premium Seat Sales Relationship Specialty Start Date End Date Diann Serrano MD [address] [place] [address] PCP - General Family Medicine 08/17/20 documented as of this encounter
--- OUTSIDE RECORDS SUMMARY | 2024-10-03 18:21 | XMS_ITS | Encounter Summary ---
Author Organization [employer] Address [address] [facility] [address] [place] [address] Care Team Providers Care In Service Educator Name Role Phone Diann Serrano MD Primary Care Provider Encounter Details Date Type Department Care Team (Latest Contact Info) Description 10/03/2024 Travel Social History Tobacco Use Types Packs/Day Years Used Date Smoking Tobacco: Former Cigarettes Q uit: 05/08/2023 Passive Smoke Exposure: Current Alcohol Use Standard Drinks/Week Comments Not Asked 0 (1 standard drink = 0.6 oz pur e alcohol) Housing Stability Answer Date Recorded What is your housing situation today? I have renettalise dobson 06/05/[address] you [...] on filedocumented in this encounter Care Teams In Service Educator Relationship Specialty Start Date End Date Diann Serrano MD [address] [place] [id number] PCP - General Family Medicine 08/17/20 documented as of this encounter
--- OUTSIDE RECORDS SUMMARY | 2024-10-03 18:21 | XMS_ITS | Encounter Summary ---
Author Organization [employer] [facility] Address [address] [place] [address] [address] [place] [address] Care Team Providers Care Mattress Specialist Name Role Phone Diann Serrano MD Primary Care Provider [phone] Encounter Details Date Type Department Care Team (Latest Contact Info) Description 01/13/2022 Abstract [facility] CONVERSIONS Dental, Provider, DDS Social History [...] on filedocumented in this encounter Care Teams Mattress Specialist Relationship Specialty Start Date End Date Diann Serrano MD [address] [place] [id number] PCP - General Family Medicine 08/17/20 documented as of this encounter
--- OUTSIDE RECORDS SUMMARY | 2024-10-03 18:21 | XMS_ITS | Encounter Summary ---
Author Organization [employer] Address [address] [place] [address] 7 [place] [address] Care Team Providers Care Supervisor Anodizing Name Role Phone Diann Serrano MD Primary Care Provider [phone] Reason for Visit * Reason Comments Follow-up Encounter Details Date Type Department Care Team ([facility] Contact Info) Description 10/03/2024 2:30 PM EST Office Visit [facility] [address] [place], [place] [phone] Diann Serrano MD [address] [place], [place] [phone] Thrombosis of pelvic vein (Primary Dx) Social History Tobacco Use Types Packs/Day Years Used Date Smoking Tobacco: Former Cigarettes Q uit: 05/08/2023 Passive Smoke Exposure: Current Tobacco Cessation:Counseling Given: Not Answered Alcohol Use Standard Drinks/Week Comments Not Asked [...] AM EDT documented as of this encounter Last Filed Vital Signs Vital Sign Reading Time Taken Comments Blood Pressure 127/81 10/03/2024 2:32 PM EST Pulse 84 10/03/2024 2:32 PM EST Temperature 35.2 ??C (95.3 ??F) 10/03/2024 2:32 PM ES T Respiratory Rate - - Oxygen Saturation 96% 10/03/2024 2:32 PM EST Inhaled Oxygen Concentration - - Weight 71 kg (156 lb 8 oz) 10/03/2024 2:32 PM ES T Height 160 cm (5' 3 ) 10/03/2024 2:32 PM EST Body Mass Index 27.72 10/03/2024 2:32 PM EST documented in this encounter Plan of Treatment Scheduled Orders Name Type Priority Associated Diagnoses Orde r Schedule D-Dimer, Quantitative Lab Routine Thrombosis of pelvic vein Expected: 10/03/2024 (Approximate), Expires: 10/03/2025 documented as of this encounter Visit Diagnoses Diagnosis Thrombosis of pelvic vein- Primary documented in this encounter Care Teams Supervisor Anodizing Relationship Specialty Start Date End Date Diann Serrano MD [address] [place] [address] PCP - General Family Medicine 08/17/20 documented as of this encounter
--- OUTSIDE RECORDS SUMMARY | 2024-10-03 18:21 | XMS_ITS | Clinical Summary ---
Author Organization [facility], Address [address] [place] [address] [place] [address] Phone Care Team Providers Care Research Affiliate Name Role Phone Bridgette Grajeda MD Primary Care Provider [phone] Allergies No known active allergies Medications nicotine (NICODERM CQ) 14 MG/24HR Place 1 patch on the skin 1 (one) time each day at the same time Active hydroxychloroqui ne (PLAQUENIL) 200 MG tablet Take by mouth 2 (two) times a day Active Active Problems Problem Noted Date Diagnosed Date Renal infarct 08/17/2019 Proteinuria 08/17/2019 Hematuria 08/17/2019 Resolved Problems Problem Noted Date Diagnosed Date Resolved Date 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 02/22/2020 Social History Tobacco Use Types Packs/Day Years Used Date Smoking Tobacco: Every Day Cigarettes Smokeless Tobacco: Never Alcohol Use Standard Drinks/Week Comments Never 0 (1 standard drink = 0.6 oz pur e alcohol) AUDIT-C Answer Date Recorded Frequency of Alcohol Consumption Never 08/17/2019 Average Number of Drinks Not on file 020 Frequency of Binge Drinking Not on file 08/03 Comments Unknown Sex and Gender Information Value Date Recorded Sex Assigned at Not on file Legal Sex Female 4:33 PM EST Gender Identity Not on file Sexual Orientation Not on file Last Filed Vital Signs Vital Sign Reading Time Taken Comments Blood Pressure 111/70 12/04/2022 3:50 PM EDT Pulse 80 12/04/2022 3:50 PM EDT Temperature - - Respiratory Rate - - Oxygen Saturation - - Inhaled Oxygen Concentration - - Weight - - Height - - Body Mass Index - - Plan of Treatment Health Maintenance Due Date Last Done Comments Pneumococcal Vaccine: Pediat rics (0 to 5 Years) and At-Risk Patients (6 to 64 Years) (1 of 2 - PCV) 1992 Hepatitis B Vaccine (1 of 3 - 19+ 3-dose series) 05/14 Influenza Vaccine (#1) 2024 Insurance Care Teams Research Affiliate Relationship Specialty Start Date End Date Bridgette Grajeda MD [address] [place] [phone] PCP - General Family Medicine 10/04/19
--- OUTSIDE RECORDS SUMMARY | 2024-10-03 18:21 | XMS_ITS | Clinical Summary ---
Author Organization [employer] Address [address] [facility] 7t [place] [address] Care Team Providers Care Biopsychologist Name Role Phone Diann Serrano MD Primary Care Provider [phone] Allergies No known active allergies Medications apixaban (Eliquis) 5 MG tabletIndicatio ns:Flank pain Take 1 tablet (5 mg) by mouth 2 times daily. 60 tablet 2 5 08/18/19 26 Active nicotine (Nicoderm, Step 2) 14 MG/24HR patch Place 1 patch on the skin 1 (one) time each day at the same time. 42 patch 3 10/04/19 25 Discontinu ed(Therapy completed) nicotine polacrilex (Nicotine Mini) 2 MG lozenge Dissolve 1 lozenge (2 mg) in the mouth if needed for smoking cessation. 100 lozenge 3 10/04/19 25 Discontinu ed(Therapy completed) metroNIDAZOLE (Flagyl) 500 MG tablet Take 500 mg by mouth 2 times daily. 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 She does require lifelong anticoagulation. Pain seems most likely from possible microembolic events ? -not large acute thrombotic event noted on recent CT abd/Pelvis w IV contrast -alarm signs and symptoms -continue tylenol prn for mild pain ,avoid NSAIDS for AC , tramadol 50 mg will do TID prn for severe pain -px for 2 weeks -continue eliquis 10 mg BID x 7 days and px as well 5 mg BID to start after completes 10 mg dose -pt already in waiting list to start care w vascular -to f w PCP in no more than 4 to 6 weeks Tobacco use 05/02/2023 Assessment & Plan (05/02/2023 10:57 PM EDT): Again smoking for the past 7 months-5-6 interested in stopping. 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, 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 Encounters Date Type Department Care Team Description 10/03/2024 2:30 PM EST Office Visit [facility] MEDICINE [address] [place] [address] Diann Serrano MD Thrombosis of pelvic vein (Primary Dx) 10/03/2024 Travel 09/21/2024 Patient Outreach [facility] [address] [place] [address] Diann Serrano MD Pre-visit Planning (SDOH screening negative and tobacco screening negative) 08/18/2024 Refill [facility] [address] [facility] [place] [address] Romel JessicaESTELLE mccann Flank pain 08/18/2024 Telephone [facility] [address] [place] [address] Jessica Urena [place] recall from Last 3 Months Immunizations Name Administration Dates Next Due Influenza injectable quadrivalent preservative f ree 06/20/2019 Social History Tobacco Use Types Packs/Day Years [...] t he electric, gas, oil or water [employer] threatened to shut off services in your [...] Orientation Straight 06/02/2022 10 :30 AM EDT Last Filed Vital Signs Vital Sign Reading Time Taken Comments Blood Pressure 127/81 10/03/2024 2:32 PM EST Pulse 84 10/03/2024 2:32 PM EST Temperature 35.2 ??C (95.3 ??F) 10/03/2024 2:32 PM ES T Respiratory Rate 20 06/05/2023 2:24 PM EDT Oxygen Saturation 96% 10/03/2024 2:32 PM EST Inhaled Oxygen Concentration - - Weight 71 kg (156 lb 8 oz) 10/03/2024 2:32 PM ES T Height 160 cm (5' 3 ) 10/03/2024 2:32 PM EST Body Mass Index 27.72 10/03/2024 2:32 PM EST Plan of Treatment Health Maintenance Due Date Last Done Comments Depression Screening 1986 HIV Screening 1986 Alcohol/Substance Use Screening 1998 Family Planning (PISQ) 2001 Hepatitis C Screening 2004 DTaP/Tdap/Td Vaccines (1 - Tdap) 2005 Hepatitis B Vaccines (1 of 3 - 19+ 3-dose series) 2005 COVID-19 Vaccine ( - 2023-2 5 season) 2024 Influenza Vaccine (#1) 2024 06/20/2019 Cervical Cancer Screening 06/21/2024 HPV/Cotest 06/21/2024 06/21/2019 Pap Smear 06/21/2024 06/21/2019 SDOH Screening 09/21/2025 09/21/2024 Tobacco Screening 10/03/2025 10/03/2024 Zoster Vaccines (1 of 2) 2036 RSV Patients and Pa tients Aged 60 years or older (1 - 1-dose 75+ series) 2061 HIB Vaccines Aged Out No longer eligi ble based on patient's age to complete this topic HPV Vaccines Aged Out No longer eligi ble based on patient's age to complete this topic Hepatitis A Vaccines Aged Out No long er eligible based on patient's age to complete this topic IPV Vaccines Aged Out No longer eligi ble based on patient's age to complete this topic Meningococcal Vaccine Aged Out No sheila marguerite eligible based on patient's age to complete this topic Pneumococcal Vaccine: Pediat rics (0 to 5 Years) and At-Risk Patients (6 to 49) Years) Aged Out No longer elig ible based on patient's age to complete this topic RSV under 20 months Aged Out No longe r eligible based on patient's age to complete this topic Rotavirus Vaccines Aged Out No longer eligible based on patient's age to complete this topic Procedures Procedure Name Priority Date/Time Associated Diagnosis Comments PAP/HPV Routine 06/21/2019 from Last 3 Months or Most Recently Relevant to Health Maintenance Results * Pap Smear (06/21/2019) Pap Negative for intraephithelial lesion or malignancy Negative for intraephithelial lesion or malignancy, Other HPV Not Detected Undetected, Indeterminate, Quantitative, Not Detected us [facility] Provider HEALTH MAINTENANCE Final Result from Last 3 Months or Most Recently Relevant to Health Maintenance Insurance [facility] STANDARD Care Teams Biopsychologist Relationship Specialty Start Date End Date Diann Serrano MD [address] [place] [address] PCP - General Family Medicine 08/17/20
== END 2024-10-03 15:31 | disposition home or self-care (01) ==
LOC: HO.HHCL 15:30
PROVIDERS: Visit Provider Student in an Organized Health Care Education/Training Program
DX: Z13.89 Encounter for screening for other disorder (principal)

== ENCOUNTER 2024-10-06 12:14 | Outpatient (REF) | payer MEDICAID, SELFPAY ==
[2024-10-06 14:42] LABS: D Dimer High Sensitivity 170 NG/ML
--- OUTSIDE RECORDS SUMMARY | 2024-10-06 14:47 | XMS_ITS | Encounter Summary ---
Author Organization [employer] Address [address] [place] [address] [address], [place] [address] Care Team Providers Care Webmethods Architect Name Role Phone Diann Serrano MD Primary Care Provider [phone] Encounter Details Date Type Department Care Team (Latest Contact Info) Description 05/23/2020 Abstract [facility] CON[facility] Dental, Provider, DDS Social History Tobacco [...] on filedocumented in this encounter Care Teams Webmethods Architect Relationship Specialty Start Date End Date Diann Serrano MD [address] [place] [id number] PCP - General Family Medicine 08/17/20 documented as of this encounter
--- OUTSIDE RECORDS SUMMARY | 2024-10-06 14:47 | XMS_ITS | Clinical Summary ---
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 From sewing machine operator floorperson's note in 12/2022 --Pt was ruled out [...] meds for long time -states already called paste worker and in waiting list to resume care- [...] Encounters Date Type Department Care Team Description 10/06/2024 Orders Only [facility] MEDICINE [address] [place] [address] Diann Serrano MD 10/03/2024 2:30 PM EST Office Visit [facility] [address] [place] [address] Diann Serrano MD Thrombosis of pelvic vein (Primary Dx) 10/03/2024 Travel 09/21/2024 Patient Outreach [facility] [address] [facility] [place] [address] Diann Serrano MD Pre-visit Planning (SDOH screening negative and tobacco screening negative) 08/18/2024 Refill [facility] [address] [place] [address] Jessica Urena MA Flank pain 08/18/2024 Telephone [facility] [address] [place] [address] Jessica Urena MA recall from Last 3 [...] Procedure Name Priority Date/Time Associated Diagnosis Comments D DIMER HIGH SENSITIVITY Routine 10/06/2024 12:33 PM EST HM PAP/HPV Routine 06/21/2019 from Last 3 Months or Most Recently Relevant to Health Maintenance Results * D Dimer High Sensitivity (10/06/2024 12:33 PM EST) D Dimer High Sensitivity 170 NG/ML [facility] Comment:D-DIMER HS REFERENCE RANGENote: Our assay reports D-Dimer Units (D- DU).The cut-off value for venous thromboembolic (VTE) disease is230 ng/mL. This value has a very high negative predictivevalue when the patient has a low to moderate clinicalprobability of VTE.The upper limit of normal is 243 ng/mL. 10/06/2024 12:3 3 PM EST 10/06/2024 12:33 PM EST Diann Serrano MD LAB BLOOD ORDERABLES Final Res ult [facility] [address] [place] [phone] * Pap Smear (06/21/2019) Pap Negative for intraephithelial lesion or malignancy Negative for intraephithelial lesion or malignancy, Other HPV Not Detected Undetected, Indeterminate, Quantitative, Not Detected Teresa Provider HEALTH MAINTENANCE Final Result from Last 3 Months or Most Recently Relevant to Health Maintenance Insurance [facility] STANDARD Care Teams Cable Television Technician Relationship Specialty Start Date End Date Diann Serrano MD [address] [place] [phone] PCP - General Family Medicine 08/17/20
--- OUTSIDE RECORDS SUMMARY | 2024-10-06 14:47 | XMS_ITS | Encounter Summary ---
Author Organization [employer] Address [address] [place] [address] Care Team Providers Care Community Service Specialist Name Role Phone Diann Serrano MD Primary Care Provider [phone] Reason for Visit * Reason Comments Follow-up Encounter Details Date Type Department Care Team ([facility] st Contact Info) Description 10/03/2024 2:30 PM EST Office Visit [facility] [address] [place] [address] Diann Serrano MD [address] [place] [address] Thrombosis of pelvic vein (Primary Dx) Social [...] Primary documented in this encounter Care Teams Community Service Specialist Relationship Specialty Start Date End Date Diann Serrano MD [address] [place] [address] PCP - General Family Medicine 08/17/20 documented as of this encounter
--- OUTSIDE RECORDS SUMMARY | 2024-10-06 14:47 | XMS_ITS | Clinical Summary ---
Author Organization [facility], Address [address] [place] [address] [place] [address] Phone Care Team Providers Care Posting Specialist Name Role Phone Bridgette Grajeda MD Primary Care Provider [phone] Allergies No known active allergies Medications nicotine [...] Influenza Vaccine (#1) 2024 Insurance Care Teams Posting Specialist Relationship Specialty Start Date End Date Bridgette Grajeda MD [address] [place] [phone] PCP - General Family Medicine 10/04/19
--- OUTSIDE RECORDS SUMMARY | 2024-10-06 14:47 | XMS_ITS | Encounter Summary ---
Author Organization [employer] Address [address] [facility] 7t [place] [address] Care Team Providers Care Inspector And Sorter Name Role Phone Diann Serrano MD Primary Care Provider [phone] Encounter Details Date Type Department Care Team ([facility] Contact Info) Description 10/06/2024 Orders Only [facility] MEDICINE [address] [place], [place] [phone] Diann Serrano MD [address] [place], [place] [phone] Social History Tobacco Use Types Packs/Day Years [...] t he electric, gas, oil or water [employer] threatened to shut off services in your [...] on file documented as of this encounter Procedures Procedure Name Priority Date/Time Associated Diagnosis Comments D DIMER HIGH SENSITIVITY Routine 10/06/2024 12:33 PM EST documented in this encounter Results * D Dimer High Sensitivity (10/06/2024 12:33 PM EST) D Dimer High Sensitivity 170 NG/ML [facility] Comment:D-DIMER HS REFERENCE RANGENote: Our assay reports D-Dimer Units (D- DU).The cut-off value for venous thromboembolic (VTE) disease is230 ng/mL. This value has a very high negative predictivevalue when the patient has a low to moderate clinicalprobability of VTE.The upper limit of normal is 243 ng/mL. 10/06/2024 12:3 3 PM EST 10/06/2024 12:33 PM EST us Diann Serrano MD LAB BLOOD ORDERABLES Final Res ult [facility] [address] [place] [address] [phone] documented in this encounter Visit Diagnoses Not on filedocumented in this encounter Care Teams Inspector And Sorter Relationship Specialty Start Date End Date Diann Serrano MD [address] [place] [phone] PCP - General Family Medicine 08/17/20 documented as of this encounter
--- OUTSIDE RECORDS SUMMARY | 2024-10-06 14:47 | XMS_ITS | Encounter Summary ---
Author Organization [employer] Address [address] [place] [address] [address] [address] Care Team Providers Care Incident Manager Name Role Phone Diann Serrano MD Primary Care Provider [phone] Encounter Details Date Type Department Care Team (Latest Contact Info) Description 01/13/2022 Abstract [facility] CONVERSIONS Dental, Provider, DDS Social [...] on filedocumented in this encounter Care Teams Incident Manager Relationship Specialty Start Date End Date Diann Serrano MD [address] [place] [phone] PCP - General Family Medicine 08/17/20 documented as of this encounter
--- OUTSIDE RECORDS SUMMARY | 2024-10-06 14:47 | XMS_ITS | Encounter Summary ---
Author Organization [employer] Address [address] [place] [address] 7 [place] [address] Care Team Providers Care Metal Bonding Press Operator Name Role Phone Diann Serrano MD Primary Care Provider [phone] Reason for Visit * Reason Comments Pre-visit Planning SDOH screening negat butch and tobacco screening negative Encounter Details Date Type Department Care Team ([facility] st Contact Info) Description 09/21/2024 Patient Outreach [facility]INE [address] [place] [address] Diann Serrano MD [address] [place] [address] Pre-visit Planning (SDOH screening negative and tobacco [...] on filedocumented in this encounter Care Teams Metal Bonding Press Operator Relationship Specialty Start Date End Date Diann Serrano MD [address] [place] [address] PCP - General Family Medicine 08/17/20 documented as of this encounter
--- OUTSIDE RECORDS SUMMARY | 2024-10-06 14:48 | XMS_ITS | Encounter Summary ---
Author Organization [employer] Address [address] [facility] 7t [place] [address] Care Team Providers Care Child Care Development Specialist Name Role Phone Diann Serrano MD Primary Care Provider [phone] Encounter Details Date Type Department Care Team [...] on filedocumented in this encounter Care Teams Child Care Development Specialist Relationship Specialty Start Date End Date Diann Serrano MD [address] [place] [phone] PCP - General Family Medicine 08/17/20 documented as of this encounter
== END 2024-10-06 12:15 | disposition home or self-care (01) ==
LOC: HO.LAB 12:14
PROVIDERS: PCP General Practice; Visit Provider General Practice
DX: I82.890 Acute embolism and thrombosis of other specified veins (principal)
CPT/HCPCS: 36415; 85379